=== PATIENT | female | born 1990 | race Caucasian/White ===

== ENCOUNTER 2018-12-30 20:45 | Emergency (ER) | payer OTHER ==
[2018-12-30 20:50] VITALS: PULSE 72; RESP 16
--- NOTE | 2018-12-30 21:54 | ED ---
Extremity Problem HPI - General Chief complaint: Extremity Problem,Nontraumatic Stated complaint: Knee pain Time Seen by Provider: 12/30/18 21:04 Source: patient Mode of arrival: ambulatory Limitations: no limitations - History of Present Illness Initial comments: This patient is a 28 year old woman who presents to be evaluated for right knee pain that has been going on intermittently for 2 weeks. The patient states she does quite a bit of going up and down stairs related to her work and believes that this may have flared it up. She indicates that she often wakes up in the morning with no pain but after work she has pain that will be about 9 out of 10 in severity. It is an aching pain. She notes that it is better with rest and worse when she is up on her feet. There is no radiation of the pain. She indicates that it is along the medial aspect of the right knee. The patient has not had any systemic symptoms including no fever or chills, rash, or other symptoms. She denies previous serious knee injury or surgery, though she does mention that she had somewhat similar pain is an 18-year-old but it resolved. MD Complaint: joint pain Onset/Timin -: week(s) Location: right, knee History of Same: Yes (As an 18-year-old) -: Yes arthralgia Radiation: none Severity scale (1-10): 9 Quality: aching Consistency: intermittent Improves with: rest Worsens with: weight bearing Associated Symptoms: denies other symptoms - Related Data Home Medications Medication Instructions Recorded Confirmed Dextroamphetamine/Amphetamine 30 mg PO DAILY 12/30/18 12/30/18 [Adderall] Levothyroxine Sodium [Synthroid] 125 mcg PO DAILY 12/30/18 12/30/18 Naproxen Sodium [Aleve] 220 mg PO QID PRN 12/30/18 12/30/18 Unknown Mood Stabilizer 1 tab PO DAILY 12/30/18 12/30/18 fluvoxaMINE MALEATE [Luvox CR] 150 mg PO DAILY 12/30/18 12/30/18 Previous Rx's Medication Instructions Recorded Ibuprofen 800 mg PO TID #20 tablet 12/30/18 Allergies Allergy/AdvReac Type Severity Reaction Status Date / Time amoxicillin AdvReac Severe Diarrhea Verified 12/30/18 21:04 Review of Systems ROS Statement: Those systems with pertinent positive or pertinent negative responses have been documented in the HPI. ROS Other: All systems not noted in ROS Statement are negative. Constitutional: Denies: fever, chills Respiratory: Denies: cough, dyspnea Cardiovascular: Denies: palpitations Gastrointestinal: Denies: diarrhea, constipation Genitourinary: Denies: dysuria, frequency Musculoskeletal: Reports: arthralgia. Denies: back pain, myalgia Skin: Denies: rash Neurological: Denies: headache, weakness, numbness, paresthesias Past Medical History Additional Past Medical History / Comment(s): hypothyroidism History of Any Multi-Drug Resistant Organisms: None Reported Past Surgical History: Cholecystectomy Additional Past Surgical History / Comment(s): Lap Band/ Smoking Status: Never smoker Past Alcohol Use History: None Reported Past Drug Use History: None Reported General Exam Limitations: no limitations General appearance: alert, in no apparent distress Extremities exam: Present: normal inspection, normal capillary refill. Absent: tenderness, pedal edema, joint swelling, calf tenderness Right Hip exam: Present: normal inspection, full ROM. Absent: tenderness Upper Leg exam: Present: normal inspection, full ROM. Absent: tenderness, swelling Knee exam: Present: normal inspection, pain/laxity with valgus (2 medial joint line), pain/laxity with varus (2 medial joint line), full knee extension. Absent: full ROM (Patient has active flexion to just over 90. I am able to fully range the joint.), swelling, abrasion, laceration, ecchymosis, deformity, crepitus, dislocation, erythema, effusion, pain w/ pronation/supination, posterior draw sign Lower Leg exam: Present: normal inspection, full ROM. Absent: tenderness Ankle exam: Present: normal inspection, full ROM. Absent: tenderness Foot/Toe exam: Present: normal inspection, full ROM. Absent: tenderness Neurovascular tendon exam: Present: no vascular compromise. Absent: pulse deficit, motor deficit, sensory deficit, tendon deficit Neurological exam: Present: alert. Absent: motor sensory deficit Skin exam: Present: warm, dry, intact, normal color. Absent: rash Course Vital Signs 12/30/18 20:47 Temperature 98.5 F Pulse Rate 72 Respiratory 16 Rate Blood Pressure 140/82 O2 Sat by Pulse 100 Oximetry Disposition Clinical Impression: Knee pain, right Disposition: HOME SELF-CARE Condition: Good Instructions (If sedation given, give patient instructions): Knee Pain (ED) Prescriptions: Ibuprofen 800 mg PO TID #20 tablet Is patient prescribed a controlled substance at d/c from ED?: No Referrals: Tiara Ly MD [Primary Care Provider] - 1-2 days
[2018-12-30 22:14] VITALS: BP 123/79; TEMP 98
== END 2018-12-30 22:41 | disposition home or self-care (01) ==
LOC: EC 20:45
DX: M25.561 Pain in right knee (principal); E03.9 Hypothyroidism, unspecified; Z90.49 Acquired absence of other specified parts of digestive tract; Z98.890 Other specified postprocedural states; Z79.890 Hormone replacement therapy; Z79.899 Other long term (current) drug therapy; Z88.0 Allergy status to penicillin
CPT/HCPCS: 99283

== ENCOUNTER 2019-07-12 21:14 | Emergency (ER) | payer OTHER ==
[2019-07-12] MEDS ORDERED: OSELTAMIVIR 75 MG CAP PO STA (22:29)
--- NOTE | 2019-07-12 22:55 | XR ---
EXAMINATION TYPE: XR chest 2V DATE OF EXAM: 07/12/2019 COMPARISON: 09/08/2013 HISTORY: Cough TECHNIQUE: 2 views FINDINGS: Heart is normal. There is some increased right paratracheal density. There are no hilar mas ses. Lungs are clear of infiltrate. There is no pleural effusion. There is density at the gastroesoph ageal junction that could relate to previous surgery. IMPRESSION: There is possible new mediastinal adenopathy compared to last exam. Follow-up recommended . No acute lung disease. Normal heart size.
[2019-07-12 23:08] VITALS: BP 110/67; PULSE 80; RESP 16; TEMP 98.3
--- NOTE | 2019-07-12 23:18 | ED ---
General Adult HPI - General Chief complaint: Headache Stated complaint: Fever Time Seen by Provider: 07/12/19 21:24 Source: patient, RN notes reviewed, old records reviewed Mode of arrival: ambulatory Limitations: no limitations - History of Present Illness Initial comments: 28-year-old female patient with seizure chief complaint of cough congestion waxing and waning fever and headache the last 2 days. Describes it as a pressure in her frontal lobe. Denies any chance of being . Denies any other complaints at this time. Systemic: Pt denies fatigue, fever/chills, rash. Pt denies weakness, night sweats, weight loss. Neuro: Pt denies visual disturbances, syncope or pre-syncope. HEENT: Pt denies ocular discharge or irritation, otalgia, rhinorrhea, pharyngitis or notable lymphadenopathy. Cardiopulmonary: Pt denies chest pain, SOB, heart palpitations, dyspnea on exertion. Abdominal/GI: Pt denies abdominal pain, n/v/d. : Pt denies dysuria, burning w/ urination, frequency/urgency. Denies new onset urinary or bowel incontinence. MSK: Pt denies myalgia, loss of strength or function in extremities. Neuro: Pt denies new onset weakness, paresthesias. - Related Data Home Medications Medication Instructions Recorded Confirmed Dextroamphetamine/Amphetamine 30 mg PO DAILY 12/30/18 12/30/18 [Adderall] Levothyroxine Sodium [Synthroid] 125 mcg PO DAILY 12/30/18 12/30/18 Naproxen Sodium [Aleve] 220 mg PO QID PRN 12/30/18 12/30/18 Unknown Mood Stabilizer 1 tab PO DAILY 12/30/18 12/30/18 fluvoxaMINE MALEATE [Luvox CR] 150 mg PO DAILY 12/30/18 12/30/18 Previous Rx's Medication Instructions Recorded Ibuprofen 800 mg PO TID #20 tablet 12/30/18 Allergies Allergy/AdvReac Type Severity Reaction Status Date / Time amoxicillin AdvReac Severe Diarrhea Verified 07/12/19 21:21 Review of Systems ROS Statement: Those systems with pertinent positive or pertinent negative responses have been documented in the HPI. ROS Other: All systems not noted in ROS Statement are negative. Past Medical History Past Medical History: Thyroid Disorder Additional Past Medical History / Comment(s): hypothyroidism, epilspsy History of Any Multi-Drug Resistant Organisms: None Reported Past Surgical History: Cholecystectomy Additional Past Surgical History / Comment(s): Lap Band/ Past Psychological History: ADD/ADHD, Anxiety, Depression, PTSD Smoking Status: Never smoker Past Alcohol Use History: None Reported Past Drug Use History: None Reported General Exam - General Exam Comments Initial Comments: Constitutional: NAD, AOX3, Pt has pleasant affect. HEENT: NC/AT, trachea midline, neck supple, no lymphadenopathy. Posterior ph arynx non erythematous, without exudates. External ears appear normal, without discharge. Mucous membranes moist. Eyes PERRLA, EOM intact. There is no scleral icterus. No pallor noted. Cardiopulmonary: RRR, no murmurs, rubs or gallops, no JVD noted. Lungs CTAB in anterior and posterior smith. No peripheral edema. Abdominal exam: Abdomen soft and non-distended. Abdomen non-tender to palpation in all 4 quadrants. Bowel sounds active in LLQ. No hepatosplenomegaly. No ecchymosis Neuro: CN II-XII intact. No nuchal rigidity. No raccon eyes, no simons sign, no hemotympanum. No cervical spinal tenderness. MSK: No posterior calf tenderness bilaterally, homans sign negative bilaterally. Posterior tibialis and radial pulse +2 bilaterally. Sensation intact in upper and lower extremities. Full active ROM in upper and lower extremities, 5/5 stregnth. Limitations: no limitations Course Vital Signs 07/12/19 07/12/19 21:18 23:07 Temperature 98.2 F 98.3 F Pulse Rate 93 80 Respiratory 20 16 Rate Blood Pressure 93/60 110/67 O2 Sat by Pulse 98 97 Oximetry Medical Decision Making - Medical Decision Making 28-year-old female patient presents to ED with complaint cough congestion fever fevered last 2 days. Patient vital signs are stable, afebrile. Physical exam displayed intact neurologic exam. Influenza A is positive. Chest x-ray displayed new mediastinal adenopathy. Patient declined any intracranial imagi ng. He has within therapeutic window initiated on Tamiflu. He'll be discharged with follow-up with primary care provider will use Tylenol at home, will have repeat chest imaging done by primary care provider to evaluate mediastinal adenopathy. Case discussed with Dr. Franklin. - Lab Data Lab Results 07/12/19 Range/Units 21:36 Influenza Type A RNA Detected H (Not Detectd) Influenza Type B (PCR) Not Detected (Not Detectd) Disposition Clinical Impression: Influenza A Disposition: HOME SELF-CARE Condition: Stable Instructions (If sedation given, give patient instructions): Influenza (ED) Additional Instructions: Follow up with PCP tomorrow. Use tylenol as needed for fever. Return to ED if condition worsens in anyway. Have repeat imaging of chest performed by PCP. Is patient prescribed a controlled substance at d/c from ED?: No Referrals: Tiara Ly MD [Primary Care Provider] - 1-2 days
== END 2019-07-12 23:21 | disposition home or self-care (01) ==
LOC: EC 21:14
DX: J10.1 Influenza due to other identified influenza virus with other respiratory manifestations (principal); R59.0 Localized enlarged lymph nodes; R56.9 Unspecified convulsions; F90.9 Attention-deficit hyperactivity disorder, unspecified type; F41.9 Anxiety disorder, unspecified; F32.9 Major depressive disorder, single episode, unspecified; E03.9 Hypothyroidism, unspecified; F43.10 Post-traumatic stress disorder, unspecified; Z79.890 Hormone replacement therapy; Z79.899 Other long term (current) drug therapy; Z88.0 Allergy status to penicillin
CPT/HCPCS: 71046; 87502; 99284

== ENCOUNTER → 2019-11-25 | Outpatient (CLI) | payer OTHER ==
--- NOTE | 2019-11-25 17:05 | P.HPBAR ---
Bariatric H&P - History & Physicial H&P Date: 11/25/19 History & Physicial: Visit/CC: Patient initial contact: Initial weight: Initial weight in pounds: Height: Initial BMI: Last weight: Current weight: Current weight in pounds: Current BMI: [place] body weight (based on NIH guidelines): Excess body weight loss: The patient is a 29 year-old F who presents for Bariatric Assessment. Has band at outside institution with and has complications from band with chronic pain and troubles swallowing. Wants bypass. Food is stuck. Recommend esophogram. Her gallbladder is gone. Lowest 248 pounds. Highest 330 pounds. She lost 290 to 248, 40 pound weight loss. Knee pain, right. Hip pain right. No ankle pain. Has feet pain. Has worst back pain. Has heartburn. She takes Prilosec for GERD. Recommend HAP assessment Past Medical History Past Medical History: Thyroid Disorder Additional Past Medical History / Comment(s): hypothyroidism, epilspsy History of Any Multi-Drug Resistant Organisms: None Reported Past Surgical History: Cholecystectomy Additional Past Surgical History / Comment(s): Lap Band/ Past Psychological History: ADD/ADHD, Anxiety, Depression, PTSD Smoking Status: Never smoker Past Alcohol Use History: None Reported Past Drug Use History: None Reported Bariatric Checklist Checklist: Plan: Checklist: EGD: 1. Hiatal hernia: 2. H. Pylori: HgbA1c: Vitamin D: Smoking: Never smoker Primary care physician referral: Psychiatry clearance: Cardiology clearance: Sleep study: Diet journal: VTE risk score: VTE risk level: Rehab needs at discharge:
[2019-11-25 17:22] VITALS: BP 128/72; PULSE 79; TEMP 98.2; BMI 46.3
== END | disposition home or self-care (01) ==
LOC: BARWHC3 15:25
PROVIDERS: ATTEND Surgery Plastic and Reconstructive Surgery
DX: T85.848A Pain due to other internal prosthetic devices, implants and grafts, initial encounter (principal); K21.9 Gastro-esophageal reflux disease without esophagitis
CPT/HCPCS: 99211

== ENCOUNTER 2020-09-01 18:06 | Inpatient (IN) | payer OTHER, MEDICAID ==
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
[2020-09-01 20:04] LABS: Amphetamine Screen,Urine Not Detected (NotDetected); Barbiturate Screen,Urine Not Detected (NotDetected); Benzodiazepines Screen,Urine Not Detected (NotDetected); Cocaine Screen,Urine Not Detected (NotDetected); Methadone Screen, Urine Not Detected (NotDetected); Opiate Screen,Urine Not Detected (NotDetected); Oxycodone Screen, Urine Not Detected (NotDetected); Phencyclidine Screen,Urine Not Detected (NotDetected); Tricyclic Antidepressant,Urine Not Detected (NotDetected); Urn Cannabinoid Scrn Not Detected (NotDetected)
[2020-09-02] MEDS ORDERED: LORazepam 1 MG TAB PO PRN (02:42)
[2020-09-02] MEDS ORDERED: LORazepam 2 MG/ML INJ IM PRN (02:44)
[2020-09-02] MEDS ORDERED: THYROID PORK 180 MG PO SCH (03:00)
[2020-09-02] MEDS ORDERED: ACETAMINOPHEN TAB 325 MG TAB PO PRN (03:00)
[2020-09-02] MEDS ORDERED: MAG HYDROX/AL HYDROX/SIMETH 30 ML CUP PO PRN (04:00)
[2020-09-02] MEDS ORDERED: haloperidoL 5 MG TAB PO PRN (05:00)
[2020-09-02] MEDS ORDERED: HALOPERIDOL LACTATE 5 MG/ML 1 ML VIAL IM PRN (06:00)
[2020-09-02] MEDS: ESCITALOPRAM 20 MG TAB PO SCH (08:27)
[2020-09-02] MEDS: DEXTROAMPHETAMINE PO SCH (08:29)
[2020-09-02] MEDS: AMPHETAMINE PO SCH (08:29)
[2020-09-02] MEDS ORDERED: MAGNESIUM HYDROXIDE 2,400 MG/10 ML CUP PO PRN (09:00)
[2020-09-02] MEDS ORDERED: NICOTINE 14MG/24HR PATCH TRANSDERM SCH (09:00)
[2020-09-02] MEDS ORDERED: TEMAZEPAM 15 MG CAP PO PRN (09:21)
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
[2020-09-02] MEDS: lamoTRIgine 25 MG TAB PO SCH ×4 (11:56→21:16)
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
[2020-09-02] MEDS: traZODone HCL 50 MG TAB PO SCH (20:58)
[2020-09-03] MEDS ORDERED: THYROID PORK 180 MG PO SCH (02:46)
[2020-09-03] MEDS: lamoTRIgine 25 MG TAB PO SCH ×2 (08:47→21:07)
[2020-09-03] MEDS: AMPHETAMINE PO SCH (08:47)
[2020-09-03] MEDS: ESCITALOPRAM 20 MG TAB PO SCH (08:47)
[2020-09-03] MEDS: DEXTROAMPHETAMINE PO SCH (08:47)
[2020-09-03] MEDS: THYROID PORK PO SCH (08:48)
[2020-09-03 12:06] LABS: ALT 16 U/L (4-34); AST 22 U/L (14-36); African American GFR (CKD) >90 (>60 ml/min/1.73 sqM); Albumin 4.2 g/dL (3.5-5.0); Alkaline Phosphatase 64 U/L (38-126); Anion Gap 12 mmol/L; Blood Urea Nitrogen 13 mg/dL (7-17); Calcium 9.7 mg/dL (8.4-10.2); Carbon Dioxide 23 mmol/L (22-30); Chloride 105 mmol/L (98-107); Cholesterol 194 mg/dL (<200); Glucose 108 mg/dL (74-99); HDL Cholesterol 37 mg/dL (40-60); LDL Cholesterol,Calculated 133 mg/dL (0-99); Non-African American GFR(CKD) >90 (>60 ml/min/1.73 sqM); Potassium 4.3 mmol/L (3.5-5.1); Sodium 140 mmol/L (137-145); Total Bilirubin 0.6 mg/dL (0.2-1.3); Total Protein 7.4 g/dL (6.3-8.2); Triglycerides 119 mg/dL (<150)
[2020-09-03 12:21] LABS: T4, Free (Free Thyroxine) 0.66 ng/dL (0.78-2.19)
[2020-09-03 12:24] LABS: Basophils % (A) 0 %; Eosinophils # (A) 0.2 k/uL (0-0.7); Eosinophils % (A) 2 %; HCT 39.2 % (34.0-46.0); HGB 12.7 gm/dL (11.4-16.0); Lymphocytes # (A) 1.4 k/uL (1.0-4.8); Lymphocytes % (A) 14 %; MCH 26.1 pg (25.0-35.0); MCHC 32.3 g/dL (31.0-37.0); MCV 80.8 fL (80.0-100.0); Mean Platelet Volume 9.9; Monocytes % (A) 10 %; Neutrophils # (A) 6.8 k/uL (1.3-7.7); Neutrophils % (A) 71 %; Platelet Count 239 k/uL (150-450); RBC 4.85 m/uL (3.80-5.40); RDW 15.4 % (11.5-15.5); WBC 9.5 k/uL (3.8-10.6)
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
[2020-09-03 19:21] LABS: Hemoglobin A1C 6.1 % (4.0-6.0)
[2020-09-03] MEDS: traZODone HCL 50 MG TAB PO SCH (21:07)
[2020-09-04] MEDS: lamoTRIgine 25 MG TAB PO SCH ×2 (07:43→21:06)
[2020-09-04] MEDS: ESCITALOPRAM 20 MG TAB PO SCH (07:43)
[2020-09-04] MEDS: THYROID PORK PO SCH (07:43)
[2020-09-04] MEDS: AMPHETAMINE PO SCH (07:53)
[2020-09-04] MEDS: DEXTROAMPHETAMINE PO SCH (07:53)
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
[2020-09-04] MEDS: traZODone HCL 50 MG TAB PO SCH (21:06)
[2020-09-05] MEDS: lamoTRIgine 25 MG TAB PO SCH (08:48)
[2020-09-05] MEDS: ESCITALOPRAM 20 MG TAB PO SCH (08:48)
[2020-09-05 08:56] VITALS: BP 120/71; PULSE 104; RESP 20; TEMP 96.1
[2020-09-05] MEDS ORDERED: THYROID PORK PO SCH (09:00)
[2020-09-05] MEDS: AMPHETAMINE PO SCH (09:28)
[2020-09-05] MEDS: DEXTROAMPHETAMINE PO SCH (09:28)
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
== END 2020-09-05 13:02 | disposition home or self-care (01) | DRG 885 ==
LOC: EC 18:06 → 3MHU 09-02 02:34
PROVIDERS: ADMIT Psychiatry & Neurology Psychiatry; ATTEND Psychiatry & Neurology Psychiatry
DX: F31.30 Bipolar disorder, current episode depressed, mild or moderate severity, unspecified (principal); R45.851 Suicidal ideations; E03.9 Hypothyroidism, unspecified; F43.10 Post-traumatic stress disorder, unspecified; G47.00 Insomnia, unspecified; Z79.899 Other long term (current) drug therapy; Z20.822 Contact with and (suspected) exposure to COVID-19
CPT/HCPCS: 80053; 80061; 80306; 81025; 83036; 84439; 84443; 85025; 87635; 99285

== ENCOUNTER → 2021-05-08 | Outpatient (CLI) | payer OTHER ==
[~2021-05-08] MED LIST: SODIUM CHLORIDE 0.9% 50 ML IVPB NR; SODIUM CHLORIDE 0.9% 500 ML 500 ML in EMPTY BAG 1 BAG IV PRN; SOTROVIMAB (EUA) 500 MG in SODIUM CHLORIDE 0.9% 100 ML IVPB NR
[2021-05-08 16:09] VITALS: RESP 16; TEMP 96.9
[2021-05-08 17:12] VITALS: BP 116/73; PULSE 76
== END ==
LOC: PROCWHC3 15:44
PROVIDERS: ATTEND Nurse Practitioner Family
DX: U07.1 COVID-19 (principal); E66.9 Obesity, unspecified; Z68.41 Body mass index [BMI] 40.0-44.9, adult; Z88.1 Allergy status to other antibiotic agents; Z88.8 Allergy status to other drugs, medicaments and biological substances
CPT/HCPCS: 96360; Q0247; M0247

== ENCOUNTER → 2022-05-15 | Outpatient (CLI) | payer OTHER ==
[2022-05-15 13:21] VITALS: BP 111/77; PULSE 79; RESP 16; TEMP 98; BMI 50.1
--- NOTE | 2022-05-15 13:55 | P.BASOAP ---
Subjective Progress Note Date: 05/15/22 Principal diagnosis: Morbid obesity 31-year-old female with history of previous lap band placement. Patient says she was not able to tolerate her lap band adjustments well. She had significant difficulty with accessing the port and on more than one occasion the band was too tight and she could not tolerate liquids. Patient is interested in band removal. She is interested in possible conversion later for bypass or sleeve. Doing well with the empty band. No GERD symptoms currently. No vomiting currently. She does have pain at the port site. Particularly when bending over. Objective - Vital Signs Vital signs: Vital Signs Temp 98 F 05/15/22 13:16 Pulse 79 05/15/22 13:16 Resp 16 05/15/22 13:16 BP 111/77 05/15/22 13:16 Pulse Ox FiO2 Intake & Output 05/14/22 05/15/22 05/15/22 18:59 06:59 18:59 Weight 149.685 kg - Exam Physical exam: General: Well-developed, well-nourished HEENT: Normocephalic, sclerae nonicteric Abdomen: Nontender, nondistended Extremities: No edema Neuro: Alert and oriented Assessment/Plan (1) Morbid obesity Narrative/Plan: 31-year-old female with morbid obesity and history of lap band placement. Patient with band intolerance not tolerating previous fills. She is interested in band removal. We discussed options of band removal, or band conversion. Personally favor gastric bypass as surgery of choice after converting from LAP- BAND given the increased risks of poor weight loss and intractable reflux with band sleeve conversion. She and I agreed to proceed with laparoscopic lap band removal at this time. She will investigate and pursue gastric bypass at a future date. Risks of bleeding, infection, perforation, nausea vomiting, dysphagia, abscess, reflux, conversion to an open procedure reviewed. She understands and wishes to proceed. Plan: Date: 05/15/22 Initial Weight: 134.717 kg Initial BMI: 45.1 Current Weight: 149.685 kg Current BMI: 50.1 Type of Surgery: Adjustable Gastric Banding Total Volume in Band: Previous Volume: Volume Removed: Volume Added: Band Size:
== END ==
LOC: BARWHC3 12:59
PROVIDERS: ATTEND Surgery
DX: E66.01 Morbid (severe) obesity due to excess calories (principal); Z68.43 Body mass index [BMI] 50.0-59.9, adult; Z88.6 Allergy status to analgesic agent; Z88.0 Allergy status to penicillin
CPT/HCPCS: 99211

== ENCOUNTER → 2022-06-20 | Outpatient (CLI) | payer OTHER ==
--- NOTE | 2022-06-20 13:50 | P.SLEEP ---
History of Present Illness DATE: 06/20/2022 CONSULTATION/NEW PATIENT EVALUATION HISTORY OF PRESENT ILLNESS/SLEEP-WAKE EVALUATION: 31-year-old lady had been evaluated in the sleep center for possible obstructive sleep apnea hypopnea syndrome. SLEEP SCHEDULE: Usually sleep schedule from 910 PM until 3 AM on weekdays and from 1011 PM until 4 AM on weekend. FALLING ASLEEP: Sometimes patient has problems with falling asleep, although no TV in bedroom. DURING SLEEP: Patient usually sleeps on the side and stomach position with episodes of loud snoring and witnessed episodes of stop breathing during the sleep. Positive history of sweating at night. Patient wakes up from sleep 3 times with nocturia. Significant amount of movements during the sleep No history of hypnogogical hallucinations, sleep paralysis, or cataplexy. DURING THE DAY/WAKE STATE: In the morning patient wake up tired, has difficulties to pay attention, falling asleep during the day, has problems with memory, concentration, irritability, depression. Trinity sleepiness scale is 12, which indicates sleepiness. Usually patient doesn't take naps, because she is always busy. PAST MEDICAL HISTORY: ADHD, depression. PAST SURGICAL HISTORY: LAP-BAND surgery, cholecystectomy. MEDICATIONS: Adderall 60 mg a day, Wellbutrin twice a day, Abilify. SOCIAL HISTORY: Negative for smoking, alcohol consumption extremely rarely. FAMILY HISTORY: Sleep apnea, hypertension, stroke, diabetes, cancer, restless legs. REVIEW OF SYSTEMS: Snoring, multiple awakenings from sleep, witnessed episodes of stop breathing during sleep. No fevers. No double vision. No recent chest pain. No shortness of breath. No abdominal pain. No bleeding episodes. No blood in urine. No seizure episodes. PHYSICAL EXAMINATION: GENERAL: A pleasant patient without any distress. VITAL SIGNS: BP 127/84 , HR 85 , RR 16 , weight 331.0 pounds, height 5 foot 7-3/4 inches, body mass index 50.7 . HEENT: PERRLA, EOMI. Evaluation of oropharynx showed tongue protrudes midline, low position of soft palate Mallampati 3. NECK: Supple. No JVD. Thyroid is not palpable. 17 inches in circumference. LUNGS: Clear to percussion and to auscultation. Good air exchange. No wheezing or rhonchi. HEART: S1, S2 regular. No murmurs, gallops or rubs. ABDOMEN: Soft and nontender. Bowel sounds are present. No organomegaly appreciated. Obese EXTREMITIES: No clubbing or cyanosis. CHIMNEY SWEEPER: Awake, alert, and oriented x3. Cranial nerves 2 to 7 intact. There is no fasciculation or atrophy noted. No focal deficits observed. ASSESSMENT: 1. Snoring, witnessed episodes of stop breathing during the sleep, small oropharyngeal airspace, multiple awakenings from sleep, likely neck, sleepiness Trinity Sleepiness Scale is 12. Obstructive sleep apnea hypopnea syndrome. 2. Obesity body mass index 50.7. 3. History of ADHD. 4. History of depression. 5 status post lap band surgery. 6 . Status post cholecystectomy. PLAN: 1. Polysomnography for evaluation of patient's breathing during sleep. 2. CPAP/BiPAP titration if sleep study confirms obstructive sleep apnea- hypopnea syndrome. 3. Preferable position during sleep on the side. 4. No driving if patient feels any sleepiness. Patient is aware of civil and criminal liability for unsafe driving. 5. Sleep hygiene with regular sleep time for at least 7.5-8 hours. 6. Aggressive losing weight weight. Thank you very much for referring this patient for consultation. Sincerely, Earl Meléndez MD, PhD, FAASM. Diplomat of [place] [employer], Sleep Medicine Board by [place] [employer] [place] [employer] [facility] Past Medical History Past Medical History: Thyroid Disorder Additional Past Medical History / Comment(s): hypothyroidism, epilspsy History of Any Multi-Drug Resistant Organisms: None Reported Past Surgical History: Cholecystectomy Additional Past Surgical History / Comment(s): Lap Band/ Past Anesthesia/Blood Transfusion Reactions: No Reported Reaction Smoking Status: Never smoker Medications and Allergies Home Medications Medication Instructions Recorded Confirmed Type Dextroamphetamine/Amphetamine 30 mg PO QAM 09/01/20 05/16/22 History [Adderall Xr] ARIPiprazole [Abilify] 10 mg PO DAILY 05/16/22 05/16/22 History Cholecalciferol (Vitamin D3) 5,000 unit PO DAILY 05/16/22 05/16/22 History [Vitamin D3 (125 MCG = 5,000 IU)] Cyanocobalamin (Vitamin B-12) 1,000 mcg PO DAILY 05/16/22 05/16/22 History [Vitamin B-12] Thyroid,Pork [[place] Thyroid] 330 mcg PO DAILY 05/16/22 05/16/22 History buPROPion HCL [Wellbutrin SR] 200 mg PO DAILY 05/16/22 05/16/22 History Allergies Allergy/AdvReac Type Severity Reaction Status Date / Time amoxicillin AdvReac Severe Diarrhea Verified 05/08/21 16:08 hydroxyzine [From Vistaril] AdvReac Makes Verified 05/08/21 16:08 heart race Sleep Note - Sleep Note Sleep Note: Temperature: Pulse Rate: Respiratory Rate: Blood Pressure: SpO2: Height: Weight: BMI: Neck Circumference:
== END ==
LOC: SLEEP 13:08
PROVIDERS: ATTEND Internal Medicine
DX: G47.33 Obstructive sleep apnea (adult) (pediatric) (principal); E66.9 Obesity, unspecified; Z68.43 Body mass index [BMI] 50.0-59.9, adult; F90.9 Attention-deficit hyperactivity disorder, unspecified type; F32.A Depression, unspecified; Z99.89 Dependence on other enabling machines and devices; Z98.84 Bariatric surgery status; Z90.49 Acquired absence of other specified parts of digestive tract; Z88.0 Allergy status to penicillin; Z88.6 Allergy status to analgesic agent
CPT/HCPCS: 99211

== ENCOUNTER → 2022-10-10 | Outpatient (CLI) | payer OTHER ==
[2022-10-10 16:48] VITALS: BP 125/79; PULSE 81; TEMP 98.2; BMI 52.6
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
== END ==
LOC: BARWHC3 16:33
PROVIDERS: ATTEND Surgery Plastic and Reconstructive Surgery
DX: E66.01 Morbid (severe) obesity due to excess calories (principal); E03.9 Hypothyroidism, unspecified; K21.9 Gastro-esophageal reflux disease without esophagitis; F90.9 Attention-deficit hyperactivity disorder, unspecified type; F31.9 Bipolar disorder, unspecified; F43.10 Post-traumatic stress disorder, unspecified; E06.3 Autoimmune thyroiditis; M16.0 Bilateral primary osteoarthritis of hip; M17.11 Unilateral primary osteoarthritis, right knee; M19.071 Primary osteoarthritis, right ankle and foot; M47.816 Spondylosis without myelopathy or radiculopathy, lumbar region; M19.072 Primary osteoarthritis, left ankle and foot; Z68.43 Body mass index [BMI] 50.0-59.9, adult; Z88.1 Allergy status to other antibiotic agents
CPT/HCPCS: 99211

== ENCOUNTER → 2022-10-27 | Outpatient (CLI) | payer OTHER ==
[2022-10-27 10:36] LABS: INR 0.9 (<1.2); Partial Thromboplastin Time 22.8 sec (22.0-30.0); Prothrombin Time 10.1 sec (9.0-12.0)
[2022-10-27 14:20] LABS: HCT 37.8 % (37.2-46.3); HGB 11.7 g/dL (12.0-15.0); MCH 26.2 pg (27.0-32.0); MCV 84.8 fL (80.0-97.0); Mean Platelet Volume 10.1 fL (9.5-12.2); NRBC Per 100 WBC 0 /100 WBCS (0.0-0.0); Platelet Count 266 X 10*3/uL (140-440); RBC 4.46 X 10*6/uL (4.10-5.20); RDW 14.8 % (11.5-14.5); WBC 5.41 X 10*3/uL (4.50-10.00)
[2022-10-27 14:43] LABS: % Iron Saturation 9.51 (12.00-45.00); ALT 22 U/L (8-44); AST 18 U/L (13-35); African American GFR (CKD) 98.1 (60.0-200.0); Albumin 4.2 g/dL (3.8-4.9); Alkaline Phosphatase 84 U/L (41-126); BUN/Creat Ratio 16.11 Ratio (12.00-20.00); Blood Urea Nitrogen 14.5 mg/dL (9.0-27.0); Calcium 9.7 mg/dL (8.7-10.3); Carbon Dioxide 22.8 mmol/L (20.0-27.5); Chloride 102 mmol/L (96-109); Ferritin 17.1 ng/mL (10.0-291.0); Globulin 2.8 g/dL (1.6-3.3); Glucose 106 mg/dL (70-110); Iron 48 ug/dL (50-170); Magnesium 1.8 mg/dL (1.5-2.4); Non-African American GFR(CKD) 84.6 (60.0-200.0); Phosphorus 3.7 mg/dL (2.4-5.1); Potassium 4.6 mmol/L (3.5-5.5); Sodium 140 mmol/L (135-145); Total Iron Binding Capacity 503 ug/dL (228-460)
[2022-10-27 14:45] LABS: Chol/HDL Ratio 5.42 Ratio; LDL Cholesterol,Calculated 127.7 mg/dL (0.0-131.0); Prealbumin 24.4 mg/dL (18.0-42.0)
== END | disposition home or self-care (01) ==
LOC: LABWHC1 09:05
PROVIDERS: ATTEND Surgery Plastic and Reconstructive Surgery
DX: E66.01 Morbid (severe) obesity due to excess calories (principal); D50.8 Other iron deficiency anemias; K91.2 Postsurgical malabsorption, not elsewhere classified; E44.0 Moderate protein-calorie malnutrition; E44.1 Mild protein-calorie malnutrition; E45 Retarded development following protein-calorie malnutrition; E55.9 Vitamin D deficiency, unspecified; K74.1 Hepatic sclerosis; N19 Unspecified kidney failure; T56.894A Toxic effect of other metals, undetermined, initial encounter; K50.90 Crohn's disease, unspecified, without complications
CPT/HCPCS: 36415; 80053; 80061; 82306; 82525; 82607; 82728; 82746; 83036; 83540; 83550; 83735; 83970; 84100; 84134; 84255; 84425; 84443; 84590; 84630; 85027; 85610; 85730

== ENCOUNTER → 2022-11-14 | Outpatient (CLI) | payer OTHER ==
--- NOTE | 2022-11-14 15:00 | FL ---
EXAMINATION TYPE: FL barium swallow DATE OF EXAM: 11/14/2022 COMPARISON: None HISTORY: Lap band reversal TECHNIQUE: Single contrast technique is utilized with thin and thick barium to evaluate the esophagus . FINDINGS: Proximal esophagus appears normal. At the thoracic inlet. No dilatation of the esophagus ev ident. However, there appears to be a transition within the mid esophagus below the aortic arch level . Borders appear smooth. Some narrowing without stenosis should be considered. Consider EGD for addit ional evaluation. Distal esophagus is mildly patulous. Schatzki's ring is identified above the level of the gastroesop hageal junction. Small hiatal hernia is present. Gastroesophageal junction opens to normal caliber. Note is made of scattered tertiary contractions during the examination compatible with presbyesophagu s. Secondary contractions observed during the examination. IMPRESSION: 1. There may be a caliber change between the midportion of the proximal esophagus and the distal eso phagus. Consider EGD for additional evaluation. 2. Small hiatal hernia
== END | disposition home or self-care (01) ==
LOC: RADUSWWP 09:50
PROVIDERS: ATTEND Surgery Plastic and Reconstructive Surgery
DX: K44.9 Diaphragmatic hernia without obstruction or gangrene (principal); R13.10 Dysphagia, unspecified
CPT/HCPCS: 74220

== ENCOUNTER 2022-11-26 06:26 | Day surgery (SDC) | payer OTHER ==
[~2022-11-26 06:26] MED LIST changes: +LACTATED RINGERS 1,000 ML IV SCH; -SODIUM CHLORIDE 0.9% 50 ML IVPB NR; -SODIUM CHLORIDE 0.9% 500 ML 500 ML in EMPTY BAG 1 BAG IV PRN; -SOTROVIMAB (EUA) 500 MG in SODIUM CHLORIDE 0.9% 100 ML IVPB NR
[2022-11-26 07:27] VITALS: TEMP 98
[2022-11-26] MEDS ORDERED: PROPOFOL 10 MG/ML 20 ML VIAL IV ONE (07:29)
[2022-11-26] MEDS ORDERED: LIDOCAINE 2% INJ 20 MG/ML (2 ML VIAL) ONE (07:29)
--- NOTE | 2022-11-26 07:30 | P.GSHP ---
History of Present Illness H&P Date: 11/26/22 CHIEF COMPLAINT: GERD HISTORY OF PRESENT ILLNESS: The patient is a 32-year-old female who presents reports gastroesophageal reflux disease. Upper endoscopy was offered for further evaluation and management. PAST MEDICAL HISTORY: Please see list. PAST SURGICAL HISTORY: Please see list. MEDICATIONS: Please see list. ALLERGIES: Please see list. SOCIAL HISTORY: No illicit drug use FAMILY HISTORY: No reports of Crohn disease or ulcerative colitis. REVIEW OF ORGAN SYSTEMS: CONSTITUTIONAL: No reports of fevers or chills. GI: Denies any blood in stools or constipation. PHYSICAL EXAM: VITAL SIGNS: Stable GENERAL: Well-developed and pleasant in no acute distress. HEENT: No scleral icterus. Extraocular movements grossly intact. Moist buccal mucosa. NECK: Supple without lymphadenopathy. CHEST: Unlabored respirations. Equal bilateral excursions. CARDIOVASCULAR: Regular rate and rhythm. Distal 2+ pulses. ABDOMEN: Soft, nondistended. MUSCULOSKELETAL: No clubbing, cyanosis, or edema. ASSESSMENT: 1. Gastroesophageal reflux disease PLAN: 1. Recommend proceeding with an upper endoscopy Past Medical History Past Medical History: Thyroid Disorder Additional Past Medical History / Comment(s): hypothyroidism, epilspsy History of Any Multi-Drug Resistant Organisms: None Reported Past Surgical History: Cholecystectomy Additional Past Surgical History / Comment(s): Lap Band/ d & c Past Anesthesia/Blood Transfusion Reactions: No Reported Reaction Smoking Status: Never smoker Medications and Allergies Home Medications Medication Instructions Recorded Confirmed Type ARIPiprazole [Abilify] 10 mg PO DAILY 05/16/22 11/26/22 History Thyroid,Pork [[place] Thyroid] 330 mcg PO DAILY 05/16/22 11/26/22 History buPROPion HCL [Wellbutrin SR] 300 mg PO BID 05/16/22 11/26/22 History Dextroamphetamine/Amphetamine 60 mg PO DAILY 07/11/22 11/26/22 History [Adderall] Allergies Allergy/AdvReac Type Severity Reaction Status Date / Time amoxicillin AdvReac Severe Diarrhea Verified 11/26/22 07:10 hydroxyzine [From Vistaril] AdvReac Makes Verified 11/26/22 07:10 heart race Surgical - Exam Vital Signs Temp Pulse Resp BP Pulse Ox 98.0 F 86 18 124/76 96 11/26/22 07:17 11/26/22 07:17 11/26/22 07:17 11/26/22 07:17 11/26/22 07:17
[2022-11-26 07:46] VITALS: RESP 16
--- NOTE | 2022-11-26 07:55 | P.PCN ---
Date of Procedure: 11/26/22 Description of Procedure: PREOPERATIVE DIAGNOSIS: Gastroesophageal reflux disease. Morbid obesity. POSTOPERATIVE DIAGNOSIS: Gastroesophageal reflux disease. Morbid obesity. Gastritis. Diaphragmatic hiatal hernia Gastroparesis OPERATION: Esophagogastroduodenoscopy with biopsies along antrum and duodenum SURGEON: Fe Escobedo MD ANESTHESIA: MAC. INDICATIONS: The patient is a 32-year-old female who presents with reflux disease. Benefits and risks of the procedure were described. Informed consent was obtained. DESCRIPTION: The patient was brought into the endoscopy suite and laid in the left lateral decubitus position. An Olympus gastroscope was passed along the posterior oropharynx down to the distal esophagus where the squamocolumnar junction was encountered at 40 cm from the incisors. The stomach was entered and no bile reflux was found. Additional findings are listed below. Biopsies with cold forceps were obtained of the antrum. The first through third portion of the duodenum was examined. Retroflexion of the scope confirmed Hill grade 3 lower esophageal valve. The squamocolumnar junction demonstrated LA grade B erosive esophagitis. The stomach was desufflated. The patient tolerated the procedure well. FINDINGS: Squamocolumnar junction 40 cm from the incisors. Diaphragmatic hiatus at 42 cm. Hiatal hernia, 2 cm Hill grade 3 lower esophageal valve. Retained food in the stomach or gastroparesis LA grade B erosive esophagitis. Biopsies obtained of the duodenum. Chronic gastritis with biopsies obtained. RECOMMENDATIONS: Upper endoscopy as needed. Plan - Discharge Summary Discharge Rx Participant: No New Discharge Prescriptions: No Action Thyroid,Pork [[place] Thyroid] 330 mcg PO DAILY buPROPion HCL [Wellbutrin SR] 300 mg PO BID ARIPiprazole [Abilify] 10 mg PO DAILY Dextroamphetamine/Amphetamine [Adderall] 60 mg PO DAILY Discharge Medication List ARIPiprazole [Abilify] 10 mg PO DAILY 05/16/22 [History] Thyroid,Pork [[place] Thyroid] 330 mcg PO DAILY 05/16/22 [History] buPROPion HCL [Wellbutrin SR] 300 mg PO BID 05/16/22 [History] Dextroamphetamine/Amphetamine [Adderall] 60 mg PO DAILY 07/11/22 [History]
[2022-11-26 08:00] VITALS: BP 127/91; PULSE 77
== END 2022-11-26 08:39 | disposition home or self-care (01) ==
LOC: ORWHC2ENDO 06:26
PROVIDERS: ATTEND Surgery Plastic and Reconstructive Surgery
DX: D72.820 Lymphocytosis (symptomatic) (principal); K21.00 Gastro-esophageal reflux disease with esophagitis, without bleeding; K29.50 Unspecified chronic gastritis without bleeding; K44.9 Diaphragmatic hernia without obstruction or gangrene; K31.84 Gastroparesis; E03.9 Hypothyroidism, unspecified; E66.01 Morbid (severe) obesity due to excess calories; Z68.44 Body mass index [BMI] 60.0-69.9, adult; Z90.49 Acquired absence of other specified parts of digestive tract; Z98.890 Other specified postprocedural states; Z79.890 Hormone replacement therapy; Z88.0 Allergy status to penicillin; Z79.899 Other long term (current) drug therapy
CPT/HCPCS: 81025; 88305; 88342; 88307; 43239; J2704; J2001

== ENCOUNTER 2022-12-28 15:32 | Emergency (ER) | payer OTHER ==
[2022-12-28 15:59] VITALS: TEMP 98
--- NOTE | 2022-12-28 16:36 | XR ---
EXAMINATION TYPE: XR foot complete RT DATE OF EXAM: 12/28/2022 COMPARISON: NONE HISTORY: 32-year-old female with pain after injury TECHNIQUE: 3 views FINDINGS: No acute fracture, subluxation, or dislocation is seen. Joint spaces are maintained. IMPRESSION: No acute osseous abnormality seen.
--- NOTE | 2022-12-28 17:47 | ED ---
General Adult HPI - General Chief complaint: Extremity Injury, Lower Stated complaint: R foot injury Source: patient Mode of arrival: ambulatory Limitations: no limitations - History of Present Illness Initial comments: 32-year-old female presenting to the ED with a chief complaint of foot pain. Patient states that she stepped out of her car onto a flat concrete surface. Patient states when she states that her right foot down she heard a "crunch". Since then notes pain to the foot. Has been able to ambulate however notes some difficulty secondary to the pain. Has been using Motrin, Tylenol, resting icing and elevating with improvement of pain. No other complaints. - Related Data Home Medications Medication Instructions Recorded Confirmed ARIPiprazole [Abilify] 10 mg PO DAILY 05/16/22 12/19/22 Thyroid,Pork [[place] Thyroid] 330 mcg PO DAILY 05/16/22 12/19/22 buPROPion HCL [Wellbutrin SR] 300 mg PO BID 05/16/22 12/19/22 Dextroamphetamine/Amphetamine 60 mg PO DAILY 07/11/22 12/19/22 [Adderall] Previous Rx's Medication Instructions Recorded Omeprazole [PriLOSEC] 40 mg PO DAILY #14 cap 11/26/22 Allergies Allergy/AdvReac Type Severity Reaction Status Date / Time amoxicillin AdvReac Severe Diarrhea Verified 12/28/22 15:59 hydroxyzine [From Vistaril] AdvReac Makes Verified 12/28/22 15:59 heart race Review of Systems ROS Statement: Those systems with pertinent positive or pertinent negative responses have been documented in the HPI. ROS Other: All systems not noted in ROS Statement are negative. Past Medical History Past Medical History: Thyroid Disorder Additional Past Medical History / Comment(s): hypothyroidism, epilspsy History of Any Multi-Drug Resistant Organisms: None Reported Past Surgical History: Bariatric Surgery, Cholecystectomy Additional Past Surgical History / Comment(s): Lap Band/ lap band removed 2022 Past Anesthesia/Blood Transfusion Reactions: No Reported Reaction Past Psychological History: ADD/ADHD, Anxiety, Depression, PTSD Smoking Status: Never smoker Past Alcohol Use History: None Reported Past Drug Use History: None Reported General Exam Limitations: no limitations General appearance: alert, in no apparent distress Respiratory exam: Present: normal lung sounds bilaterally Cardiovascular Exam: Present: regular rate, normal rhythm GI/Abdominal exam: Present: soft Extremities exam: Present: other (Strength and sensation intact of the right foot. Able to ambulate without significant difficulty. Tenderness to palpation at the base of the first metatarsal.) Neurological exam: Present: alert, oriented X3 Psychiatric exam: Present: normal affect, normal mood Skin exam: Present: warm, dry Course Vital Signs 12/28/22 15:57 Temperature 98 F Pulse Rate 74 Respiratory 18 Rate Blood Pressure 148/85 O2 Sat by Pulse 99 Oximetry Medical Decision Making - Medical Decision Making Was pt. sent in by a medical professional or institution (, BILL, UPPER MARKER, urgent care, hospital, or prison...) When possible be specific @ -No Did you speak to anyone other than the patient for history (EMS, parent, family, police, friend...)? What history was obtained from this source @ -No Did you review nursing and triage notes (agree or disagree)? Why? @ -I reviewed and agree with nursing and triage notes Were old charts reviewed (outside hosp., previous admission, EMS record, old EKG, old radiological studies, urgent care reports/EKG's, prison records)? Report findings @ -None Differential Diagnosis (chest pain, altered mental status, abdominal pain women, abdominal pain men, vaginal bleeding, weakness, fever, dyspnea, syncope, headach e, dizziness, GI bleed, back pain, seizure, CVA, palpatations, mental health, musculoskeletal)? @ -Acute fracture, acute sprain, Lisfranc. This is not meant to be an all-inclusive list. EKG interpreted by me (3pts min.). @ -None X-rays interpreted by me (1pt min.). @ -X-ray shows no evidence of fracture or other acute process. CT interpreted by me (1pt min.). @ -None done U/S interpreted by me (1pt. min.). @ -None done What testing was considered but not performed or refused? (CT, X-rays, U/S, labs)? Why? @ -None What meds were considered but not given or refused? Why? @ -None Did you discuss the management of the patient with other professionals (professionals i.e. BILL Hurt, UPPER MARKER, lab, RT, psych nurse, social media content manager, grocery specialist, teacher, technology officer, case packer and sealer)? Give summary @ -No Was smoking cessation discussed for >3mins.? @ -No Was critical care preformed (if so, how long)? @ -No Were there social determinants of health that impacted care today? How? (Homelessness, low income, unemployed, alcoholism, drug addiction, transportation, low edu. Level, literacy, decrease access to med. care, penitentiary, rehab)? @ -No Was there de-escalation of care discussed even if they declined (Discuss DNR or withdrawal of care, Hospice)? DNR status @ -No What co-morbidities impacted this encounter? (DM, HTN, Smoking, COPD, CAD, Cancer, CVA, ARF, Chemo, Hep., AIDS, mental health diagnosis, sleep apnea, morbid obesity)? @ -Obesity Was patient admitted / discharged? Hospital course, mention meds given and route, prescriptions, significant lab abnormalities, going to OR and other pertinent info. @ -Discharged. Since onset of initial injury, patient reports improvement of pain. Advised to continue RICE. Urgent studies here showed no evidence of fracture. Patient will be provided follow-up with orthopedics. Discharged home in stable condition. Undiagnosed new problem with uncertain prognosis? @ -No Drug Therapy requiring intensive monitoring for toxicity (Heparin, Nitro, Insulin, Cardizem)? @ -No Were any procedures done? @ -No Diagnosis/symptom? @ -Foot sprain Acute, or Chronic, or Acute on Chronic? @ -Acute Uncomplicated (without systemic symptoms) or Complicated (systemic symptoms)? @ -Uncomplicated Side effects of treatment? @ -No Exacerbation, Progression, or Severe Exacerbation? @ -No Poses a threat to life or bodily function? How? (Chest pain, USA, CT, pneumonia, PE, COPD, DKA, ARF, appy, cholecystitis, CVA, Diverticulitis, Homicidal, Suicidal, threat to staff... and all critical care pts) @ -No Disposition Clinical Impression: Foot sprain Disposition: HOME SELF-CARE Condition: Good Instructions (If sedation given, give patient instructions): Foot Sprain (ED) Additional Instructions: Please return to the Emergency Department if symptoms worsen or any other concerns. Is patient prescribed a controlled substance at d/c from ED?: No Referrals: Yuli Alexander MD [Primary Care Provider] - 1-2 days Master Amanda DO [Doctor of Osteopathic Medicine] - 1-2 days Time of Disposition: 17:45
[2022-12-28 18:19] VITALS: BP 121/78; PULSE 95; RESP 16
== END 2022-12-28 18:19 | disposition home or self-care (01) ==
LOC: EC 15:32
DX: S93.601A Unspecified sprain of right foot, initial encounter (principal); E03.9 Hypothyroidism, unspecified; F41.9 Anxiety disorder, unspecified; F32.A Depression, unspecified; E66.9 Obesity, unspecified; Z79.890 Hormone replacement therapy; Z79.899 Other long term (current) drug therapy; Z88.0 Allergy status to penicillin; Z88.6 Allergy status to analgesic agent; Z90.49 Acquired absence of other specified parts of digestive tract; Z68.43 Body mass index [BMI] 50.0-59.9, adult; X50.1XXA Overexertion from prolonged static or awkward postures, initial encounter
CPT/HCPCS: 99283

== ENCOUNTER → 2023-01-21 | Outpatient (CLI) | payer OTHER ==
[2023-01-21 10:42] VITALS: BMI 53.4
== END ==
LOC: BARWHC3 08:11
PROVIDERS: ATTEND Surgery Plastic and Reconstructive Surgery
DX: E66.01 Morbid (severe) obesity due to excess calories (principal); Z71.3 Dietary counseling and surveillance; Z68.43 Body mass index [BMI] 50.0-59.9, adult; Z88.0 Allergy status to penicillin; Z88.6 Allergy status to analgesic agent
CPT/HCPCS: 97804

== ENCOUNTER → 2023-03-29 | Outpatient (CLI) | payer OTHER ==
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
== END | disposition home or self-care (01) ==
LOC: RADXRWHC 08:23
PROVIDERS: ATTEND Family Medicine
DX: J68.3 Other acute and subacute respiratory conditions due to chemicals, gases, fumes and vapors (principal)
CPT/HCPCS: 71046

== ENCOUNTER 2023-05-09 21:23 | Emergency (ER) | payer OTHER ==
[2023-05-09 21:40] VITALS: RESP 18
[2023-05-09] MEDS ORDERED: IPRATROPIUM-ALBUTEROL 3 ML NEB INHALATION STA (22:11)
[2023-05-09] MEDS ORDERED: KETOROLAC 15 MG/ML 1 ML VIAL IM STA (22:12)
[2023-05-09] MEDS ORDERED: dexAMETHasone 2 MG TAB PO STA (22:12)
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
[2023-05-10 00:27] VITALS: BP 106/70; PULSE 94; TEMP 97.9
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
== END 2023-05-10 00:13 | disposition home or self-care (01) ==
LOC: EC 21:23
DX: S20.219A Contusion of unspecified front wall of thorax, initial encounter (principal); J98.01 Acute bronchospasm; E03.9 Hypothyroidism, unspecified; Z79.890 Hormone replacement therapy; Z88.0 Allergy status to penicillin; Z88.8 Allergy status to other drugs, medicaments and biological substances; Z86.59 Personal history of other mental and behavioral disorders; Z90.49 Acquired absence of other specified parts of digestive tract; V89.2XXA Person injured in unspecified motor-vehicle accident, traffic, initial encounter; Y92.410 Unspecified street and highway as the place of occurrence of the external cause
CPT/HCPCS: 94640; 73562; 71046; 99284; 96372; J8540; J1885

== ENCOUNTER → 2023-05-15 | Outpatient (CLI) | payer OTHER ==
[2023-05-15 10:47] LABS: African American GFR (CKD) >90 (>60 ml/min/1.73 sqM); Blood Urea Nitrogen 15 mg/dL (7-17); Non-African American GFR(CKD) 83 (>60 ml/min/1.73 sqM)
--- NOTE | 2023-05-15 11:28 | CT ---
EXAMINATION TYPE: CT chest w con DATE OF EXAM: 05/15/2023 COMPARISON: None HISTORY: chest mass f/u, pt has no complaints CT DLP: 954.3 mGycm Automated exposure control for dose reduction was used. CONTRAST: CT scan of the chest is performed with IV Contrast, patient injected with 100 mL of Isovue 300. FINDINGS: LUNGS: The lungs are grossly clear, there is no concerning parenchymal mass or nodule identified. T here is no pleural effusion or pneumothorax seen. The tracheobronchial tree is patent. MEDIASTINUM: Superior mediastinal cystic mass measuring 6.0 x 6.7 x 7.7 cm. There is displacement of adjacent vasculature and the esophagus as well as mass effect upon the trachea. Tracheal narrowing no jason to approximately 6 mm. This mass is of uncertain etiology may arise from the lower pole of the th yroid gland. Mediastinal mass or other etiology is not excluded. UPPER ABDOMEN: The gallbladder is surgically absent. OTHER: No additional significant abnormality is seen. IMPRESSION: 1.Superior mediastinal cystic mass measuring 6.0 x 6.7 x 7.7 cm. There is displacement of adjacent va sculature and the esophagus as well as mass effect upon the trachea. Tracheal narrowing noted to appr oximately 6 mm. This mass is of uncertain etiology may arise from the lower pole of the thyroid gland . Mediastinal mass or other etiology is not excluded.
== END | disposition home or self-care (01) ==
LOC: RADCTMAIN 09:37
PROVIDERS: ATTEND Family Medicine
DX: R91.8 Other nonspecific abnormal finding of lung field (principal); K22.89 Other specified disease of esophagus
CPT/HCPCS: 82565; 84520; 71260; 36415; Q9967

== ENCOUNTER → 2023-06-05 | Outpatient (CLI) | payer OTHER ==
[2023-06-05 11:14] LABS: INR 0.9 (<1.2); Partial Thromboplastin Time 22.8 sec (22.0-30.0); Prothrombin Time 10.1 sec (10.0-12.5)
[2023-06-05 15:14] LABS: Basophils # (A) 0.06 X 10*3/uL (0.00-0.10); Basophils % (A) 0.8 %; Eosinophils # (A) 0.27 X 10*3/uL (0.04-0.35); Eosinophils % (A) 3.8 %; HCT 40.8 % (37.2-46.3); HGB 12.4 g/dL (12.0-15.0); Lymphocytes # (A) 1.47 X 10*3/uL (0.90-5.00); Lymphocytes % (A) 20.8 %; MCH 25.9 pg (27.0-32.0); MCHC 30.4 g/dL (32.0-37.0); MCV 85.2 FL (80.0-97.0); Mean Platelet Volume 9.8 FL (9.5-12.2); Monocytes # (A) 0.37 X 10*3/uL (0.20-1.00); Monocytes % (A) 5.2 %; NRBC Per 100 WBC 0 X 10*3/uL (0.00-0.01); Neutrophils # (A) 4.88 X 10*3/uL (1.80-7.70); Platelet Count 288 X 10*3/uL (140-440); RBC 4.79 X 10*6/uL (4.10-5.20); RDW 16.7 % (11.5-14.5); WBC 7.08 X 10*3/uL (4.50-10.00)
[2023-06-05 15:18] LABS: Blood Urea Nitrogen 9.4 mg/dL (9.0-27.0); Carbon Dioxide 24.7 mmol/L (21.6-31.8); Chloride 103 mmol/L (96-109); Glucose 135 mg/dL (70-110); Potassium 4.5 mmol/L (3.5-5.5); Sodium 140 mmol/L (135-145)
[2023-06-06 04:43] LABS: Appearance,Urine Turbid (Clear); Bilirubin,Urine Negative (Negative); Blood,Urine Negative (Negative); Color,Urine Yellow (Yellow); Ketones,Urine Negative (Negative); Nitrite,Urine Negative (Negative); Specific Gravity,Urine 1.024 (1.001-1.030)
[2023-06-06 04:54] LABS: Bacteria,Urine 1+ (None Seen)
== END | disposition home or self-care (01) ==
LOC: LABPAT 10:12
PROVIDERS: ATTEND Thoracic Surgery (Cardiothoracic Vascular Surgery)
DX: Z01.812 Encounter for preprocedural laboratory examination (principal); E87.8 Other disorders of electrolyte and fluid balance, not elsewhere classified; R58 Hemorrhage, not elsewhere classified; R22.9 Localized swelling, mass and lump, unspecified
CPT/HCPCS: 36415; 80051; 81001; 82565; 82947; 84520; 85025; 85610; 85730; 86850; 86900; 86901; 87086

== ENCOUNTER 2023-06-13 05:49 | Inpatient (IN) | payer OTHER ==
[~2023-06-13 05:49] MED LIST changes: -LACTATED RINGERS 1,000 ML IV SCH; +ceFAZolin 3 GM in SODIUM CHLORIDE 0.9% 100 ML IVPB PRN
[2023-06-13] MEDS ORDERED: LACTATED RINGERS 1,000 ML IV SCH (06:23)
[2023-06-13] MEDS ORDERED: ONDANSETRON 4 MG/2 ML VIAL IVP ONE ×2 (06:23→06:58)
[2023-06-13] MEDS ORDERED: DEXAMETHASONE SOD PHOSPHATE 4 MG/ML 1 ML VIAL IV ONE (06:23)
[2023-06-13] MEDS ORDERED: LIDOCAINE 1% (10MG/ML) FOR IV START INTRADERMA PRN (06:23)
[2023-06-13 06:54] LABS: Glucose,Whole Blood 113 mg/dL (70-110)
[2023-06-13] MEDS ORDERED: LACTATED RINGERS 1,000 ML IV ONE ×5 (06:59→09:21)
[2023-06-13] MEDS ORDERED: HYDROmorphone 0.5 MG/0.5 ML SYRINGE IVP PRN (07:00)
[2023-06-13] MEDS ORDERED: MIDAZOLAM 2 MG/2 ML VIAL IV PRN (07:00)
[2023-06-13] MEDS ORDERED: MIDAZOLAM 2 MG/2 ML VIAL IVP ONE (07:10)
[2023-06-13] MEDS ORDERED: fentaNYL (PF) 50 MCG/ML 2 ML AMP IVP ONE ×2 (07:10→07:22)
[2023-06-13] MEDS ORDERED: HYDROmorphone (PF) 1 MG/ML ONE (07:39)
[2023-06-13] MEDS ORDERED: NEOSTIGMINE 1 MG/ML 10 ML VIAL ONE (07:39)
[2023-06-13] MEDS ORDERED: PROPOFOL 10 MG/ML 20 ML VIAL IV ONE (07:39)
[2023-06-13] MEDS ORDERED: ROCURONIUM 10 MG/ML (5 ML VIAL) IV ONE (07:39)
[2023-06-13] MEDS ORDERED: DEXAMETHASONE SOD PHOSPHATE 4 MG/ML 1 ML VIAL ONE (07:39)
[2023-06-13] MEDS ORDERED: LIDOCAINE 1% INJ 10MG/ML (20 ML MDV) ONE (07:39)
[2023-06-13] MEDS ORDERED: MIDAZOLAM 2 MG/2 ML VIAL ONE (07:39)
[2023-06-13] MEDS ORDERED: ROPIVACAINE 5 MG/ML 30 ML VIAL ONE (07:39)
[2023-06-13] MEDS ORDERED: SUCCINYLCHOLINE CHLORIDE 200 MG/10 ML VIAL IV ONE (07:39)
[2023-06-13] MEDS ORDERED: GLYCOPYRROLATE 0.2 MG/ML 2 ML VIAL ONE (07:39)
[2023-06-13] MEDS ORDERED: fentaNYL (PF) 50 MCG/ML 2 ML AMP ONE (07:39)
[2023-06-13] MEDS ORDERED: BUPIVACAINE (PF) 0.5% 30 ML VIAL SQ ONE (09:40)
--- NOTE | 2023-06-13 10:04 | P.ANPRN ---
Procedure Note - Anesthesia - Nerve Block Performed Right Erector Spinae Single Time Out Performed: Yes Date of Procedure: 06/13/23 Procedure Start Time: 07:10 Procedure Stop Time: :19 Location of Patient: PreOp Indication: Acute Post-Operative Pain, Requested by Surgeon Sedation Type: Sedate with meaningful contact maintained Preparation: Sterile Prep Position: Sitting Needle Types: Pajunk Needle Gauge: 21 Ultrasound used to visualize needle placement: Yes Ultrasound used to observe medication spread: Yes Injectate: 0.5% Ropivacaine (see comment for volume) (30 ml + 4 mg dexamethasone) Blood Aspirated: No Pain Paresthesia on Injection Noted: No Resistance on Injection: Normal Image Stored and Saved: Yes Events: Uneventful and Well Tolerated
--- NOTE | 2023-06-13 10:05 | P.ANPRN ---
Procedure Note - Anesthesia - Invasive Line Left Arterial Line Time Out Performed: Yes Date of Procedure: 06/13/23 Time of Procedure: 07:22 Location of Patient: PreOp Preparation: Sterile Prep, Sterile Dressing Arterial Line Location: Radial Ultrasound Used: Yes Purpose - Visualization and Identification of Vasculature: Yes Needle Guage: 20 G Image Stored and Saved: Yes Narrative: Central line placement per sterile protocol utilized.
--- NOTE | 2023-06-13 11:58 | XR ---
EXAMINATION TYPE: XR chest 1V portable DATE OF EXAM: 06/13/2023 Comparison: 05/09/2023 Clinical History: 32-year-old female post mediastinal cyst removal Findings: Subcutaneous emphysema along the right chest wall. A right basilar chest tube is present with a small right-sided pneumothorax measuring approximately 1.9 cm at the apex 4 mm laterally. Patchy opacity i s present throughout the right greater than left lungs especially at the lung bases. Very low lung vo lumes. Heart size is accentuated. Impression: 1. Postoperative changes with right basilar chest tube and a small right-sided pneumothorax measuring 1.9 cm at the apex and 4 mm laterally. 2. Marked hypoventilatory changes limiting the exam. Patchy opacities right greater than left lungs p robably represents areas of atelectasis. Attention on follow-up.
--- NOTE | 2023-06-13 12:07 | P.OP ---
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 She presents with complaints of worsening dyspnea and difficulty breathing as well as upper chest pain. Computed tomography scan demonstrates a very large cyst in the superior mediastinum's placing the great vessels compressing the trachea displacing the esophagus. Operative Findings: Very large cyst in the superior mediastinum densely adherent to the surrounding tissues with moderate inflammatory vascular adhesions. The interior of the cyst was filled with thick greenish fluid greater than 100 mL in total volume. Description of Procedure: Patient was brought to the operating room placed supine on the operating table multiple attempts to place an arterial line were unsuccessful at obtaining a functioning arterial line. Patient was anesthetized and intubated with a double-lumen endotracheal tube which was positioned with fiberoptic bronchoscopy and secured. Patient was turned in the left lateral decubitus position and appropriately positioned. Right chest was sterilely prepped and draped. 8 mm robotic port was placed in the seventh interspace in the anterior axillary line. Once confirming placement in the pleural space CO2 insufflation was begun. 3 further 8 mm ports were placed one anterior and 2 ports posterior to this under video thoracoscopic guidance. 15 mm working port was placed at the level of the diaphragm anteriorly. The robot was docked. The chest was explored. The upper lobe was retracted inferiorly exposing the superior mediastinum. Mass effect from the cyst was evident. This was covered with pleura and fat. We dissected through to the cyst wall. We freed the cyst wall circumferentially and dissected back along the cyst wall superiorly inferiorly anteriorly and posteriorly to the greatest extent possible. At this point we opened the cyst and suctioned free of its contents. The cyst was opened widely and then the right half of the cyst was excised using the vessel sealer. Remaining shallow cavity was irrigated copiously and then a 19 Darwin tube was placed anteriorly and positioned posteriorly. The lung was reinflated and the robot undocked. The incisions were closed with layers of Vicryl suture. Skin glue and Band-Aids were applied. The patient was turned supine and extubated and transferred to recovery in stable condition.
[2023-06-13] MEDS ORDERED: ACETAMINOPHEN IV (For NPO) 1,000 MG/100 ML VIAL IVPB ONE (12:48)
[2023-06-13] MEDS ORDERED: IPRATROPIUM-ALBUTEROL 3 ML NEB IH PRN (16:08)
[2023-06-13] MEDS ORDERED: ONDANSETRON 4 MG/2 ML VIAL IVP PRN (16:08)
[2023-06-13] MEDS ORDERED: DEXTROSE 5%-0.45% NACL 1,000 ML IV SCH (16:08)
[2023-06-13] MEDS ORDERED: ACETAMINOPHEN TAB 325 MG TAB PO PRN (16:08)
[2023-06-13] MEDS: KETOROLAC 15 MG/ML 1 ML VIAL IVP SCH (16:25)
[2023-06-13] MEDS: ceFAZolin 3 GM in SODIUM CHLORIDE 0.9% 100 ML IVPB SCH (16:44)
[2023-06-13] MEDS: IPRATROPIUM-ALBUTEROL 3 ML NEB IH SCH ×2 (18:08→21:35)
[2023-06-13] MEDS: traMADol 50 MG TAB PO PRN (20:15)
[2023-06-13 20:22] VITALS: RESP 16
[2023-06-14] MEDS: KETOROLAC 15 MG/ML 1 ML VIAL IVP SCH ×3 (00:55→18:55)
[2023-06-14] MEDS: ceFAZolin 3 GM in SODIUM CHLORIDE 0.9% 100 ML IVPB SCH (00:57)
[2023-06-14 01:20] VITALS: BP 127/66; TEMP 98.2
[2023-06-14 05:51] LABS: Basophils % (A) 0 %; Eosinophils % (A) 0 %; HCT 39.8 % (34.0-46.0); HGB 12.1 gm/dL (11.4-16.0); Hypochromasia Marked; Lymphocytes # (A) 1.2 k/uL (1.0-4.8); Lymphocytes % (A) 10 %; MCH 26.7 pg (25.0-35.0); MCHC 30.3 g/dL (31.0-37.0); MCV 87.9 fL (80.0-100.0); Mean Platelet Volume 7.8; Monocytes # (A) 0.7 k/uL (0-1.0); Monocytes % (A) 6 %; Neutrophils # (A) 9.4 k/uL (1.3-7.7); Neutrophils % (A) 82 %; Platelet Count 258 k/uL (150-450); RBC 4.53 m/uL (3.80-5.40); RDW 15.6 % (11.5-15.5); WBC 11.4 k/uL (3.8-10.6)
[2023-06-14 06:05] LABS: African American GFR (CKD) 87 (>60 ml/min/1.73 sqM); Anion Gap 15 mmol/L; Blood Urea Nitrogen 12 mg/dL (7-17); Calcium 8.3 mg/dL (8.4-10.2); Carbon Dioxide 22 mmol/L (22-30); Chloride 102 mmol/L (98-107); Glucose 107 mg/dL (74-99); Non-African American GFR(CKD) 75 (>60 ml/min/1.73 sqM); Potassium 4.1 mmol/L (3.5-5.1); Sodium 139 mmol/L (137-145)
[2023-06-14] MEDS: PATIENT'S OWN (Dextroamphetamine/Amphetamine [Adderall] 30 MG Tablet) PO SCH ×2 (06:16→16:40)
[2023-06-14] MEDS ORDERED: PANTOPRAZOLE 40 MG TABLET PO SCH (07:30)
[2023-06-14] MEDS ORDERED: LEVOTHYROXINE 75 MCG TAB PO SCH (07:30)
[2023-06-14] MEDS ORDERED: LEVOTHYROXINE 200 MCG PO SCH (07:30)
[2023-06-14] MEDS: IPRATROPIUM-ALBUTEROL 3 ML NEB IH SCH ×4 (08:58→21:09)
[2023-06-14] MEDS ORDERED: ARIPiprazole 10 MG TAB PO SCH (09:00)
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
--- NOTE | 2023-06-14 12:29 | XR ---
EXAMINATION TYPE: XR chest 1V DATE OF EXAM: 06/14/2023 COMPARISON: 06/13/2023 HISTORY: 32 year-old female post mediastinal cyst removal TECHNIQUE: Single frontal view of the chest is obtained. FINDINGS: Right-sided chest tube remains in place. Suspected residual trace 5 mm right apical pneumo thorax. Prominent patchy right lower lung opacity persists. Asymmetric elevation right hemidiaphragm also persists and suggests volume loss on the right, increased in the interval. Left lung and pleural space appear clear. Heart upper limits of normal in size. IMPRESSION: 1. Prominent hypoventilatory changes. Aeration worsening at the right base. Patient may benefit from incentive spirometry. 2. Right basilar chest tube. Trace 5 mm right apical pneumothorax remains versus 1.9 cm, previously.
--- NOTE | 2023-06-14 14:50 | XR ---
EXAMINATION TYPE: XR chest 2V DATE OF EXAM: 06/14/2023 COMPARISON: Earlier today HISTORY: 32 year-old female post chest tube removal TECHNIQUE: PA and lateral views FINDINGS: Heart upper limits of normal in size. Interval removal of the right basilar chest tube. Prominent pat mansoor and focal right basilar opacities remain. No appreciable pneumothorax. A linear density at the in tersection of the clavicle and third posterior rib likely summation artifact. Suspected trace right p leural effusion with meniscus tracking up to the apex. IMPRESSION: Interval removal of right basilar chest tube. There appears to be a small effusion. Ongoing focal rig ht lower lung opacity. No sizable pneumothorax seen.
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
[2023-06-14 16:39] VITALS: PULSE 91
[2023-06-14] MEDS: traMADol 50 MG TAB PO PRN (16:52)
== END 2023-06-14 22:58 | disposition home or self-care (01) | DRG 121 ==
LOC: 2ORMAIN 05:49 → 3SCARD 13:36
PROVIDERS: ADMIT Thoracic Surgery (Cardiothoracic Vascular Surgery); ATTEND Thoracic Surgery (Cardiothoracic Vascular Surgery)
PROC: 4A133B1 Monitoring of Arterial Pressure, Peripheral, Percutaneous Approach (ICD-10-PCS; 2023-06-13)
PROC: 03HY32Z Insertion of Monitoring Device into Upper Artery, Percutaneous Approach (ICD-10-PCS; 2023-06-13)
PROC: 4A133J1 Monitoring of Arterial Pulse, Peripheral, Percutaneous Approach (ICD-10-PCS; 2023-06-13)
PROC: 02HV33Z Insertion of Infusion Device into Superior Vena Cava, Percutaneous Approach (ICD-10-PCS; 2023-06-13)
PROC: 0WBC4ZZ Excision of Mediastinum, Percutaneous Endoscopic Approach (ICD-10-PCS; principal; 2023-06-13 07:30)
PROC: 8E0W8CZ Robotic Assisted Procedure of Trunk Region, Via Natural or Artificial Opening Endoscopic (ICD-10-PCS; principal; 2023-06-13 07:30)
PROC: 0W9 Anatomical Regions, General, Drainage (ICD-10-PCS; principal; 2023-06-13 07:30)
DX: Q34.1 Congenital cyst of mediastinum (principal); E66.01 Morbid (severe) obesity due to excess calories; Z68.43 Body mass index [BMI] 50.0-59.9, adult; E06.3 Autoimmune thyroiditis; F43.10 Post-traumatic stress disorder, unspecified; I87.1 Compression of vein; J39.8 Other specified diseases of upper respiratory tract; J98.11 Atelectasis; Z98.84 Bariatric surgery status; Z91.51 Personal history of suicidal behavior; K90.0 Celiac disease; Z88.0 Allergy status to penicillin; Z88.7 Allergy status to serum and vaccine; F41.9 Anxiety disorder, unspecified; R09.02 Hypoxemia; G40.919 Epilepsy, unspecified, intractable, without status epilepticus
CPT/HCPCS: 64999; 71045; 71046; 80048; 85025; 88305; 94640; 94760

== ENCOUNTER → 2023-07-04 | Outpatient (CLI) | payer OTHER ==
--- NOTE | 2023-07-04 12:20 | XR ---
EXAMINATION TYPE: XR chest 2V DATE OF EXAM: 07/04/2023 11:30 AM CLINICAL INDICATION:Female, 32 years old with history of R06.02 SHORTNESS OF BREATH; [facility] COMPARISON: Chest radiographs from 06/14/2023. TECHNIQUE: XR chest 2V Frontal and lateral views of the chest. FINDINGS: Lungs/Pleura: Right midlung streaky atelectasis. Improved aeration compared to 06/14/2023. There is no evidence of pleural effusion, focal consolidation, or pneumothorax. Pulmonary vascularity: Unremarkable. Heart/mediastinum: Cardiomediastinal silhouette is unremarkable. Musculoskeletal: No acute osseous pathology. IMPRESSION: Improved aeration with right midlung streaky atelectasis. No acute cardiopulmonary disease/process.
== END | disposition home or self-care (01) ==
LOC: RADXRMAIN 11:19
DX: R06.02 Shortness of breath (principal)
CPT/HCPCS: 71046

== ENCOUNTER → 2023-09-23 | Outpatient (CLI) | payer OTHER ==
[2023-09-23 09:22] LABS: African American GFR (CKD) >90 (>60 ml/min/1.73 sqM); Blood Urea Nitrogen 12 mg/dL (7-17); Non-African American GFR(CKD) >90 (>60 ml/min/1.73 sqM)
--- NOTE | 2023-09-25 15:44 | CT ---
EXAMINATION TYPE: CT chest w con CT DLP: 821 mGycm, Automated exposure control for dose reduction was used. DATE OF EXAM: 09/23/2023 9:59 AM COMPARISON: Chest CT from 05/15/2023 CLINICAL INDICATION:Female, 33 years old with history of R05.3 chronic cough; PHH, MARY, SOB hx of berto st tube placed in June 2023 TECHNIQUE: Multiple axial images were obtained through the chest. Sagittal and coronal reformats were created for review. Contrast used:100 mL of Isovue 300 with IV Contrast (None if empty) Oral contrast used: (None if empty) FINDINGS: LUNGS/ PLEURA: The left lung is clear. Patchy bands of atelectasis are seen throughout the right lung . With history of chest tube question whether these might represent patches of pulmonary parenchymal hemorrhage which is usually short duration resolving on its own quickly. There are also some areas of consolidating process in the right lung. AIRWAY: Patent and unremarkable. HEART: Size within normal limits. MEDIASTINUM: The previously seen superior mediastinal mass is reduced in size. Question this represen ts hematoma or thymic cyst versus other etiology. VASCULATURE: No aortic aneurysm. MUSCULOSKELETAL: No acute osseous abnormalities SOFT TISSUES/LYMPH NODES: Unremarkable. LOWER NECK: No significant findings. UPPER ABDOMEN: No significant findings. IMPRESSION: Patchy areas of atelectasis with some consolidation and other patches suggest acute pneumonia versus pulmonary parenchymal hemorrhage versus other. Reduction in size of superior mediastinal mass prior study of 05/15/2023 Follow up recommendations for incidental pulmonary nodules, if there are any, are per [employer] or [employer]. https://radiopaedia.org/articles/[email or web address]-[email or web address]?lang=us
== END | disposition home or self-care (01) ==
LOC: RADCTMAIN 08:36
PROVIDERS: ATTEND Family Medicine
DX: J98.11 Atelectasis (principal)
CPT/HCPCS: 82565; 84520; 71260; 36415; Q9967

== ENCOUNTER 2023-11-06 01:59 | Inpatient (IN) | payer OTHER ==
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
[2023-11-06 03:17] LABS: ALT 26 U/L (4-34); AST 37 U/L (14-36); African American GFR (CKD) >90 (>60 ml/min/1.73 sqM); Albumin 4.4 g/dL (3.5-5.0); Alkaline Phosphatase 83 U/L (38-126); Anion Gap 6 mmol/L; Blood Urea Nitrogen 16 mg/dL (7-17); Calcium 8.8 mg/dL (8.4-10.2); Carbon Dioxide 22 mmol/L (22-30); Chloride 108 mmol/L (98-107); Glucose 135 mg/dL (74-99); Non-African American GFR(CKD) >90 (>60 ml/min/1.73 sqM); Sodium 136 mmol/L (137-145); Total Bilirubin 1.1 mg/dL (0.2-1.3); Total Protein 7.8 g/dL (6.3-8.2)
[2023-11-06 03:50] LABS: Potassium 5.2 mmol/L (3.5-5.1)
[2023-11-06] MEDS: SODIUM CHLORIDE 0.9% 1,000 ML IV SCH (03:59)
[2023-11-06 04:04] LABS: Anisocytosis Slight; Basophils # (A) 0.1 k/uL (0-0.2); Basophils % (A) 1 %; Eosinophils # (A) 0.3 k/uL (0-0.7); Eosinophils % (A) 4 %; HCT 43.2 % (34.0-46.0); HGB 13.5 gm/dL (11.4-16.0); Lymphocytes # (A) 1.4 k/uL (1.0-4.8); Lymphocytes % (A) 20 %; MCH 25.3 pg (25.0-35.0); MCHC 31.3 g/dL (31.0-37.0); Mean Platelet Volume 7.7; Monocytes # (A) 0.5 k/uL (0-1.0); Monocytes % (A) 8 %; Neutrophils # (A) 4.3 k/uL (1.3-7.7); Neutrophils % (A) 64 %; Platelet Count 301 k/uL (150-450); RBC 5.34 m/uL (3.80-5.40); RDW 16.3 % (11.5-15.5); WBC 6.7 k/uL (3.8-10.6)
--- NOTE | 2023-11-06 04:13 | XR ---
EXAM: XR Chest, 2 Views CLINICAL HISTORY: ITS.REASON XR Reason: dyspnea TECHNIQUE: Frontal and lateral views of the chest. COMPARISON: 2 views of the chest July 04, 2013 IMPRESSION: 1. Right hemidiaphragm elevation with adjacent linear airspace disease which likely relates to atelectatic changes. If there is further concern, consider cross-sectional imaging.
[2023-11-06 04:30] LABS: Prothrombin Time 10.7 sec (10.0-12.5)
[2023-11-06] MEDS: IPRATROPIUM-ALBUTEROL 3 ML NEB INHALATION STA (04:43)
[2023-11-06 05:18] LABS: Partial Thromboplastin Time 21.2 sec (22.0-30.0)
--- NOTE | 2023-11-06 06:06 | CT ---
EXAMINATION TYPE: CT chest angio for PE DATE OF EXAM: 11/06/2023 COMPARISON: NONE HISTORY: Hypoxia, tachycardia, and shortness of breath CT DLP: 1408 mGycm. Automated Exposure Control for Dose Reduction was Utilized. CONTRAST: CTA scan of the thorax is performed with IV Contrast, patient injected with 80 mL of Isovue 300, pulm onary embolism protocol. MIP Images are created on CT scanner and reviewed. FINDINGS: LUNGS: Elevated right hemidiaphragm with right basilar consolidation and/or atelectasis and additiona l right midlung linear scarring and/or atelectasis. Slightly suboptimal due to respiratory motion com promise particularly for subcentimeter nodules. No pleural effusion or pneumothorax seen bilaterally. MEDIASTINUM: Suboptimal bolus with most dense contrast in aorta and SVC. No central saddle pulmonary embolism. Prominent right hilar lymph nodes. Enlarged anterior superior mediastinal mass or lymph no de measuring 4.5 x 3.2 cm axial image 36. Prominent main pulmonary artery. No cardiomegaly or pericar dial effusion is seen. OTHER: Cholecystectomy clips are seen. Liver is diffusely low dense consistent with fatty infiltrativ e hepatocellular disease. IMPRESSION: 1. Suboptimal study without central pulmonary embolism. Cannot exclude peripheral acute pulmonary emb ed on this exam. 2. Elevated right hemidiaphragm with right basilar consolidation and/or atelectasis and right midlung linear scarring and/or atelectasis. Left lung is clear. 3. Prominent right hilar lymph nodes. Enlarged superior mediastinal lymph node. Neoplasm cannot be ex cluded. Follow-up is advised.
[2023-11-06] MEDS ORDERED: NALOXONE 0.4 MG/ML 1 ML VIAL IVP PRN (06:51)
[2023-11-06] MEDS: IPRATROPIUM-ALBUTEROL 3 ML NEB INHALATION PRN (08:40)
[2023-11-06] MEDS ORDERED: predniSONE 20 MG TAB PO SCH (09:00)
[2023-11-06] MEDS: BUDESONIDE 0.5 MG/2 ML NEBU INHALATION SCH (09:16)
[2023-11-06] MEDS: LEVOTHYROXINE 75 MCG TAB PO SCH (09:18)
[2023-11-06] MEDS: ARIPiprazole 10 MG TAB PO SCH (09:19)
[2023-11-06] MEDS: methylPREDNISolone SOD SUCCI 125 MG/2 ML VIAL IV STA (09:20)
[2023-11-06] MEDS: methylPREDNISolone SOD SUCCI 125 MG/2 ML VIAL IV SCH (11:12)
[2023-11-06] MEDS: IPRATROPIUM-ALBUTEROL 3 ML NEB INHALATION SCH (11:40)
--- NOTE | 2023-11-06 14:12 | P.CNPUL ---
History of Present Illness Consult date: 11/06/23 Requesting physician: Matthew Oreilly Reason for consult: dyspnea, asthma Chief complaint: Shortness of breath, cough History of present illness: This is a very pleasant 33-year-old obese female patient who works as a respiratory therapist with a known history of mild intermittent chronic bronchial asthma, hypothyroidism, depression, morbid obesity with previous lap band surgery, previous COVID infection. 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 Since that time she states she has had ongoing issues with shortness of breath. She had been treated with steroids in the outpatient setting without much improvement. She also is on air supra and DuoNeb ventilations without much improvement. She was scheduled to be seen in our office as a new patient in December however she presented here to the emergency room with worsening shortness of breath, cough and congestion. Chest x-ray reveals a right hemidiaphragm elevation with adjacent linear airspace disease likely representing atelectasis. CT angiogram was suboptimal to rule out peripheral pulmonary emboli. No evidence of central pulmonary embolism. There is noted elevated right hemidiaphragm with right basilar consolidation and/or atelectasis and right midlung linear scarring and/or atelectasis. Left lung is clear. There is noted prominent right hilar lymph nodes. Enlarged superior mediastinal lymph node. White count 6.7. Hem oglobin 13.5. Platelets 301. Sodium 136. Potassium 5.2. Bicarb 22. BUN 16. Creatinine 0.85. Glucose 135. Viral screen is negative. She is seen today in consultation in the emergency department. She is currently sitting up on stretcher. She is dyspneic with conversation. Dyspneic with minimal exertion. No productive sputum. No hemoptysis. Review of Systems REVIEW OF SYSTEMS: CONSTITUTIONAL: Denies any recent significant weight loss or weight gain. EYES: Denies change in vision. EARS, NOSE, MOUTH, THROAT: Denies headaches, denies sore throat. CARDIOVASCULAR: Denies chest pain, palpitations or syncopal episodes. RESPIRATORY: Positive for shortness of breath, cough, congestion no hemoptysis. GASTROINTESTINAL: Denies change in appetite, denies abdominal pain GENITOURINARY: Denies hematuria, denies infections. MUSKULOSKELETAL: Denies pain, denies swelling. INTEGUMENTARY: Denies rash, denies eczema. NEUROLOGICAL: Denies recent memory loss, no recent seizure activity. PSYCHIATRIC: Denies anxiety, denies depression. HEMATOLOGIC/LYMPHATIC: Denies anemia, denies enlarged lymph nodes. Past Medical History Past Medical History: Asthma, Thyroid Disorder Additional Past Medical History / Comment(s): hypothyroidism, epilspsy, collaspse lung right side History of Any Multi-Drug Resistant Organisms: None Reported Past Surgical History: Bariatric Surgery, Cholecystectomy Additional Past Surgical History / Comment(s): Lap Band/ lap band removed 2022, tumor removal from medialstinal region. chest tube Past Anesthesia/Blood Transfusion Reactions: No Reported Reaction Past Psychological History: ADD/ADHD, Anxiety, Depression, PTSD Smoking Status: Never smoker Past Alcohol Use History: None Reported Past Drug Use History: None Reported - Past Family History Mother Family Medical History: Diabetes Mellitus, Hypertension, Myocardial Infarction ([place]) Father Family Medical History: Hypertension Brother(s) Family Medical History: Hypertension Medications and Allergies Home Medications Medication Instructions Recorded Confirmed Type ARIPiprazole [Abilify] 10 mg PO DAILY 05/16/22 11/06/23 History Levothyroxine Sodium [Unithroid] 200 mcg PO DAILY 06/11/23 11/06/23 History Albuterol Nebulized [Ventolin 2.5 mg INHALATION RT-Q4H 11/06/23 11/06/23 History Nebulized] Budesonide [Pulmicort] 1 mg INHALATION RT-BID 11/06/23 11/06/23 History Levothyroxine Sodium [Unithroid] 50 mcg PO DAILY 11/06/23 11/06/23 History Allergies Allergy/AdvReac Type Severity Reaction Status Date / Time amoxicillin AdvReac Severe Diarrhea Verified 11/06/23 10:09 hydroxyzine [From Vistaril] AdvReac Makes Verified 11/06/23 10:09 heart race Physical Exam Vitals: Vital Signs Temp Pulse Resp BP Pulse Ox 11/06/23 13:02 103 H 20 116/92 92 L 11/06/23 12:02 92 L 11/06/23 12:00 89 L 11/06/23 11:53 100 11/06/23 11:41 98 11/06/23 10:34 98 24 93 L 11/06/23 08:54 108 H 11/06/23 08:40 102 H 11/06/23 08:10 87 24 123/68 95 11/06/23 05:14 117 H 32 H 156/96 93 L 11/06/23 04:56 115 H 11/06/23 04:45 112 H 11/06/23 04:04 107 H 26 H 139/100 95 11/06/23 02:32 125 H 26 H 94 L 11/06/23 02:16 28 H 11/06/23 02:08 98.5 F 106 H 28 H 149/89 94 L Intake and Output 11/05/23 11/06/23 11/06/23 22:59 06:59 14:59 Other: Weight 167.829 kg GENERAL EXAM: Alert, very pleasant, morbidly obese, 33-year-old female, in mild respiratory distress. HEAD: Normocephalic. EYES: Normal reaction of pupils, equal size. NOSE: Clear with pink turbinates. THROAT: No erythema or exudates. NECK: No masses, no JVD. CHEST: No chest wall deformity. LUNGS: Equal air entry with bilateral wheeze, diminished in the right lung base. CVS: S1 and S2 normal with no audible murmur, regular rhythm. ABDOMEN: No hepatosplenomegaly, normal bowel sounds, no guarding or rigidity. SPINE: No scoliosis or deformity SKIN: No rashes CENTRAL NERVOUS SYSTEM: No focal deficits, tone is normal in all 4 extremities. EXTREMITIES: There is no peripheral edema. No clubbing, no cyanosis. Peripheral pulses are intact. Results - Laboratory Findings CBC and BMP: 11/06/23 03:11 11/06/23 02:50 PT/INR, D-dimer PT 10.7 sec (10.0-12.5) 11/06/23 03:11 INR 1.0 (<1.2) 11/06/23 03:11 Abnormal lab findings: Abnormal Labs 11/06/23 11/06/23 11/06/23 02:50 03:11 03:11 RDW 16.3 H APTT 21.2 L Sodium 136 L Potassium 5.2 H Chloride 108 H Glucose 135 H AST 37 H - Diagnostic Findings Chest x-ray: image reviewed CT scan - chest: image reviewed Assessment and Plan Assessment: Acute hypoxemic respiratory failure secondary to an acute exacerbation of mild intermittent chronic bronchial asthma, elevated right hemidiaphragm and volume loss History of mild intermittent chronic bronchial asthma History of mediastinal cyst 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, 2023 Elevated right hemidiaphragm suspect secondary to above, previous x-rays did not reveal abnormalities Morbid obesity, BMI 56.3 kg/m History of lap band surgery with subsequent removal in July 2022 History of depression Hypothyroidism Lifelong non-smoker Plan: The patient was seen and evaluated Chest x-ray, CT angiogram, labs and medications reviewed Obtain a sniff test Initiate DuoNeb inhalations, Pulmicort and Perforomist inhalations Solu-Medrol 60 mg every 6 hours Titrate the FiO2 as tolerated We will continue to follow and make further recommendations based on her clinical status I have personally seen and examined the patient, performed the documentation and the assessment and plan as written. Number of minutes spent on the visit: 20.
--- NOTE | 2023-11-06 15:39 | FL ---
EXAMINATION TYPE: FL sniff test without CXR DATE OF EXAM: 11/06/2023 Comparison: Radiograph Clinical History: 33-year-old female history of mediastinal mass removed 06/13/2023 complicated by rig ht-sided pneumothorax and chest tube. Ongoing shortness of breath. Right diaphragm elevation TECHNIQUE: Real-time fluoroscopy was performed during quiet breathing, deep inspiration expiration, a nd sniffing maneuver. Total fluoroscopy time: 28 seconds Total images: 9 Total dose: 284.07 mGycm2. Findings: There is marked asymmetric elevation right hemidiaphragm. Absent movement of the right hemidiaphragm during both quiet breathing and deep inspiration. There is bea paradoxical, upward movement of the right hemidiaphragm during sniffing maneuver. Impression: Exam positive. There is bea paralysis of the right hemidiaphragm.
[2023-11-06] MEDS: FORMOTEROL FUMARATE 20 MCG/2 ML NEBU INHALATION SCH (20:16)
[2023-11-06] MEDS: BUDESONIDE 1 MG/2 ML NEBU INHALATION SCH (20:16)
--- NOTE | 2023-11-06 22:05 | P.HPIM ---
History of Present Illness H&P Date: 11/06/23 HISTORY OF PRESENT ILLNESS: 33-year-old office patient with active medical history of chronic asthma with multiple recurrent episode, history of morbid obesity, depression, previous history of lap band and previous history of gallbladder surgery who had COVID-19 earlier in the year and she feels has not recovered well since developed to have worsening wheezes cough and symptoms and has been on and off medication management for it since. Also she found in June that she had mass in the mediastinum area and without having surgery with Dr. 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 She developed to have worsening shortness of breath since but since her procedure developed to have what seemed like elevated right- sided diaphragm and continue to have reactive lymph node in the mediastinum area. She apparently developed to have much worsening shortness of breath wheezes and worsening asthma with slight respiratory failure and has been on prednisone 40 mg for the last 10 days straight which patient did not have much relief with her symptoms she works as a respiratory therapist and through the worsening symptoms she had ended up coming to the emergency department at [facility] after midnight today 11/06/2023 where was seen and evaluated was giving few rounds of breathing treatment along with oxygen did not loosen up her lungs continue to be much worse. D-dimer was elevated chest x-ray showed right hemidiaphragmatic elevation with airspace disease present at the base. CT angiogram was suboptimal failed to show any evidence for pulmonary embolism but noted again in the right hemidiaphragm elevation with basilar consolidation and atelectasis along with midlung glinides scarring and or atelectasis with prominent right hilar lymph node enlargement with enlarged superior mediastinal lymph node as well. She was started on steroid IV along with titration of O2 and updraft treatment admitted to the hospital will be seen pulmonary and see if patient will need to go for bronchoscopy or not. REVIEW OF SYSTEMS: CONSTITUTIONAL: Morbidly obese in mild respiratory distress. EYES: No icterus sclerae, no conjunctivitis. EARS, NOSE, MOUTH, THROAT, and FACE: No sore throat, lymphadenopathy, carotid bruits or deformity. RESPIRATORY: Positive shortness of breath cough wheezes with productive phlegm and stridor. CARDIOVASCULAR: Positive tachycardia with no angina but significant shortness of breath with it as well. GASTROINTESTINAL: No Abd pain, Nausea or vomiting, no Diarrhea or constipation, No GI Bleed, no distention or masses. GENITOURINARY: Negative for Hematuria or UTI, no kidney stones. INTEGUMENT/BREAST: Negative for any muscular injury with mild osteoarthritis.. HEMATOLOGIC/LYMPHATIC: Negative for bleed or purpura. MUSCULOSKELTAL: Negative for Myalgia or arthralgia. NEURLOGICAL: No LOC, Sz or syncope, blurred vision dizziness or abnormality.. BEHAVIORAL/PSYCH: Negative. ENDOCRINE: Negative. PHYSICAL EXAMINATION: General Appearance: Alert cooperative with mild distress. Neck HEENT: Supple, no lymphadenopathy, no thyroid enlargement, no carotid bruits. Lungs: Decreased breath sound bilaterally with fine rhonchi positive crackles and expiratory wheezes in both lung smith worse on the right side of the left side. Chest Wall: Decreased expansion with deep inspiration no tenderness and no deformity was found on exam, no costochondral pain or discomfort. Heart: Regular rate and rhythm, S1, S2 normal positive tachycardia, no murmur, rub or gallop. Back: Symmetric, no curvature, ROM normal, no CVA tenderness. Abdomen: Soft, non-tender, bowel sounds active all four quadrants, no masses, no organomegaly. Extremities: Extremities normal, atraumatic, no cyanosis or edema. Pulses: 2+ and symmetric. Skin: Skin color, texture, tugor normal, no rashes or lesions. Neurologic: Alert oriented x3 cranial nerves II through XII intact, no motor deficit, no abnormal balance or gait. ASSESSMENT AND PLAN: _Severe acute asthma exacerbation: Patient was hospitalized will continue Solu- Medrol along with updraft treatment and steroid inhaler. _Acute hypoxic respiratory failure secondary to exacerbation of intermittent asthma with elevation of the diaphragmatic and more loss of volume possibility of underlying bronchitis or infection as well. _History of mediastinal cyst postresection with quite scarring tissue in the lung. Continue to watch for any further complication patient be seen pulmonary on regular basis. 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 Will continue to watch it again not a clear if there is any management can be done for at this point. _Possibility of severe bronchitis and we described to show this is quite possi ble she might benefit from simple course of doxycycline 100 mg twice a day at this point. _Severe depression with recurrent episode, remain on Abilify at this point. _Hypothyroidism: Remain on levothyroxine 50 mcg daily. _Morbid obesity: Post lap band in the past failure to management continue diet control. _GI prophylaxis: She will be on Pepcid 20 mg daily. _DVT prophylaxis: Patient will be on Lovenox 40 mg subcutaneous daily. CODE STATUS: Full code. Admit patient to the inpatient service for more than 2 night stay. _ Past Medical History Past Medical History: Asthma, Thyroid Disorder Additional Past Medical History / Comment(s): hypothyroidism, epilspsy, collaspse lung right side History of Any Multi-Drug Resistant Organisms: None Reported Past Surgical History: Bariatric Surgery, Cholecystectomy Additional Past Surgical History / Comment(s): Lap Band/ lap band removed 2022, tumor removal from medialstinal region. chest tube Past Anesthesia/Blood Transfusion Reactions: No Reported Reaction Past Psychological History: ADD/ADHD, Anxiety, Depression, PTSD Smoking Status: Never smoker Past Alcohol Use History: None Reported Past Drug Use History: None Reported - Past Family History Mother Family Medical History: Diabetes Mellitus, Hypertension, Myocardial Infarction ([place]) Father Family Medical History: Hypertension Brother(s) Family Medical History: Hypertension Medications and Allergies Home Medications Medication Instructions Recorded Confirmed Type ARIPiprazole [Abilify] 10 mg PO DAILY 05/16/22 11/06/23 History Levothyroxine Sodium [Unithroid] 200 mcg PO DAILY 06/11/23 11/06/23 History Albuterol Nebulized [Ventolin 2.5 mg INHALATION RT-Q4H 11/06/23 11/06/23 History Nebulized] Budesonide [Pulmicort] 1 mg INHALATION RT-BID 11/06/23 11/06/23 History Levothyroxine Sodium [Unithroid] 50 mcg PO DAILY 11/06/23 11/06/23 History Allergies Allergy/AdvReac Type Severity Reaction Status Date / Time amoxicillin AdvReac Severe Diarrhea Verified 11/06/23 10:09 hydroxyzine [From Vistaril] AdvReac Makes Verified 11/06/23 10:09 heart race Physical Exam Vitals: Vital Signs Temp Pulse Resp BP Pulse Ox 11/06/23 08:10 87 24 123/68 95 11/06/23 05:14 117 H 32 H 156/96 93 L 11/06/23 04:56 115 H 11/06/23 04:45 112 H 11/06/23 04:04 107 H 26 H 139/100 95 11/06/23 02:32 125 H 26 H 94 L 11/06/23 02:16 28 H 11/06/23 02:08 98.5 F 106 H 28 H 149/89 94 L Intake and Output 11/05/23 11/06/23 11/06/23 22:59 06:59 14:59 Other: Weight 167.829 kg Results CBC & Chem 7: 11/06/23 03:11 11/06/23 02:50 Labs: Abnormal Lab Results - Last 24 Hours (Table) 11/06/23 11/06/23 11/06/23 Range/Units 02:50 03:11 03:11 RDW 16.3 H (11.5-15.5) % APTT 21.2 L (22.0-30.0) sec Sodium 136 L (137-145) mmol/L Potassium 5.2 H (3.5-5.1) mmol/L Chloride 108 H (98-107) mmol/L Glucose 135 H (74-99) mg/dL AST 37 H (14-36) U/L
[2023-11-07] MEDS: LEVOTHYROXINE 50 MCG TAB PO SCH (05:41)
[2023-11-07 08:43] LABS: Anisocytosis Slight; Basophils % (A) 0 %; Eosinophils % (A) 0 %; HCT 39.7 % (34.0-46.0); HGB 12.6 gm/dL (11.4-16.0); Hypochromasia Moderate; Lymphocytes # (A) 0.8 k/uL (1.0-4.8); Lymphocytes % (A) 9 %; MCHC 31.9 g/dL (31.0-37.0); MCV 81.7 fL (80.0-100.0); Monocytes # (A) 0.6 k/uL (0-1.0); Monocytes % (A) 7 %; Neutrophils # (A) 7.1 k/uL (1.3-7.7); Neutrophils % (A) 83 %; Platelet Count 312 k/uL (150-450); RBC 4.86 m/uL (3.80-5.40); WBC 8.6 k/uL (3.8-10.6)
[2023-11-07 08:55] LABS: ALT 24 U/L (4-34); AST 20 U/L (14-36); African American GFR (CKD) >90 (>60 ml/min/1.73 sqM); Albumin 4.1 g/dL (3.5-5.0); Alkaline Phosphatase 92 U/L (38-126); Anion Gap 7 mmol/L; Blood Urea Nitrogen 12 mg/dL (7-17); Calcium 8.9 mg/dL (8.4-10.2); Carbon Dioxide 22 mmol/L (22-30); Chloride 109 mmol/L (98-107); Glucose 207 mg/dL (74-99); Magnesium 2.1 mg/dL (1.6-2.3); Non-African American GFR(CKD) >90 (>60 ml/min/1.73 sqM); Potassium 4.5 mmol/L (3.5-5.1); Sodium 138 mmol/L (137-145); Total Bilirubin 0.6 mg/dL (0.2-1.3); Total Protein 7.2 g/dL (6.3-8.2)
[2023-11-07] MEDS: PANTOPRAZOLE 40 MG TABLET PO SCH (09:30)
[2023-11-07] MEDS: DOXYCYCLINE 100 MG CAP PO SCH (09:30)
[2023-11-07] MEDS: ENOXAPARIN 40 MG/0.4 ML SYRINGE SQ SCH (09:34)
[2023-11-07 11:54] LABS: Bordedella pertussis Not detected (Not detected); Bordetella holmesII Not detected (Not detected); Bordetella parapertussis Not detected (Not detected)
--- NOTE | 2023-11-07 13:37 | P.PN ---
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 Since that time she states she has had ongoing issues with shortness of breath. She had been breonna jason with steroids in the outpatient setting without much improvement. She also is on air supra and DuoNeb ventilations without much improvement. She was scheduled to be seen in our office as a new patient in December however she presented here to the emergency room with worsening shortness of breath, cough and congestion. Chest x-ray reveals a right hemidiaphragm elevation with adjacent linear airspace disease likely representing atelectasis. CT angiogram was suboptimal to rule out peripheral pulmonary emboli. No evidence of central pulmonary embolism. There is noted elevated right hemidiaphragm with right basilar consolidation and/or atelectasis and right midlung linear scarring and/or atelectasis. Left lung is clear. There is noted prominent right hilar lymph nodes. Enlarged superior mediastinal lymph node. White count 6.7. Hemoglobin 13.5. Platelets 301. Sodium 136. Potassium 5.2. Bicarb 22. BUN 16. Creatinine 0.85. Glucose 135. Viral screen is negative. She is seen today in consultation in the emergency department. She is currently sitting up on stretcher. She is dyspneic with conversation. Dyspneic with minimal exertion. No productive sputum. No hemoptysis. The patient was seen today November 07, 2023 in follow-up in the emergency department. She is currently sitting up in bed. Awake and alert in no acute distress. Feeling quite a bit better today compared to yesterday. She is maintaining good O2 saturations in the 90s on 2 L/min per nasal cannula. Sniff test did confirm bea paralysis of the right hemidiaphragm. Blood cultures revealed no growth. White count 8.6. Hemoglobin 12.6. Platelets 312,000. Sodium 138. Potassium 4.5. Bicarb 22. BUN 12. Creatinine 0.6. Glucose 207. She is continued on DuoNeb inhalations, Pulmicort and Perforomist inhalations, Solu-Medrol. Empiric antibiotics in the form of doxycycline. Objective - Vital Signs Vital signs: Vital Signs Temp 97.6 F 11/07/23 07:49 Pulse 115 H 11/07/23 11:59 Resp 24 11/07/23 10:48 BP 152/100 11/07/23 07:49 Pulse Ox 93 L 11/07/23 10:48 FiO2 Intake & Output 11/06/23 11/07/23 11/07/23 18:59 06:59 18:59 Intake Total 900 Balance 900 Intake: Intake, IV Titration 900 Amount Sodium Chloride 0.9% 1, 900 000 ml @ 130 mls/hr IV . Q7H42M [facility] Rx#:[id number] Other: # Voids 1 # Bowel Movements 0 - Exam GENERAL EXAM: Alert, very pleasant, 33-year-old female, 2 L nasal cannula, in no acute distress. HEAD: Normocephalic. EYES: Normal reaction of pupils, equal size. NOSE: Clear with pink turbinates. THROAT: No erythema or exudates. NECK: No masses, no JVD. CHEST: No chest wall deformity. LUNGS: Equal air entry with bilateral wheeze, diminished in the right lung base. CVS: S1 and S2 normal with no audible murmur, regular rhythm. ABDOMEN: Obese, normal bowel sounds, no guarding or rigidity. SPINE: No scoliosis or deformity SKIN: No rashes CENTRAL NERVOUS SYSTEM: No focal deficits, tone is normal in all 4 extremities. EXTREMITIES: There is no peripheral edema. No clubbing, no cyanosis. Peripheral pulses are intact. - Labs CBC & Chem 7: 11/07/23 08:18 11/07/23 08:18 Labs: Abnormal Lab Results - Last 24 Hours (Table) 11/07/23 11/07/23 Range/Units 08:18 08:18 RDW 16.0 H (11.5-15.5) % Lymphocytes # 0.8 L (1.0-4.8) k/uL Chloride 109 H (98-107) mmol/L Glucose 207 H (74-99) mg/dL Microbiology - Last 24 Hours (Table) 11/06/23 03:11 Blood Culture - Preliminary Blood 11/06/23 03:11 Blood Culture - Preliminary Blood Assessment and Plan Assessment: Acute hypoxemic respiratory failure secondary to an acute exacerbation of mild intermittent chronic bronchial asthma, elevated right hemidiaphragm and volume loss. 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 History of mild intermittent chronic bronchial asthma History of mediastinal cyst 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, 2023 Elevated right hemidiaphragm suspect secondary to above, previous x-rays did not reveal abnormalities Morbid obesity, BMI 56.3 kg/m History of lap band surgery with subsequent removal in July 2022 History of depression Hypothyroidism Lifelong non-smoker Plan: The patient was seen and evaluated Sniff test, labs and medications reviewed Continue DuoNeb inhalations, Pulmicort and Perforomist inhalations Continue Solu-Medrol Titrate the FiO2 as tolerated The patient will follow-up in our office postdischarge May be considered for diaphragmatic plication down the road I have personally seen and examined the patient, performed the documentation and the assessment and plan as written. Number of minutes spent on the visit: 10.
[2023-11-07 17:00] VITALS: TEMP 97.8
--- NOTE | 2023-11-07 22:43 | P.PN ---
Subjective Progress Note Date: 11/07/23 HISTORY OF PRESENT ILLNESS: 33-year-old office patient with active medical history of chronic asthma with multiple recurrent episode, history of morbid obesity, depression, previous history of lap band and previous history of gallbladder surgery who had COVID-19 earlier in the year and she feels has not recovered well since developed to have worsening wheezes cough and symptoms and has been on and off medication management for it since. Also she found in June that she had mass in the mediastinum area and without having surgery with Dr. 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 She developed to have worsening shortness of breath since but since her procedure developed to have what seemed like elevated right- sided diaphragm and continue to have reactive lymph node in the mediastinum area. She apparently developed to have much worsening shortness of breath wheezes and worsening asthma with slight respiratory failure and has been on prednisone 40 mg for the last 10 days straight which patient did not have much relief with her symptoms she works as a respiratory therapist and through the worsening symptoms she had ended up coming to the emergency department at [facility] after midnight today 11/06/2023 where was seen and evaluated was giving few rounds of breathing treatment along with oxygen did not loosen up her lungs continue to be much worse. D-dimer was elevated chest x-ray showed right hemidiaphragmatic elevation with airspace disease present at the base. CT angiogram was suboptimal failed to show any evidence for pulmonary embolism but noted again in the right hemidiaphragm elevation with basilar consolidation and atelectasis along with midlung glinides scarring and or atelectasis with prominent right hilar lymph node enlargement with enlarged superior mediastinal lymph node as well. She was started on steroid IV along with titration of O2 and updraft treatment admitted to the hospital will be seen pulmonary and see if patient will need to go for bronchoscopy or not. 11/07/2023: Her dyspnea and shortness of breath has improved some compared to yesterday remain on high-dose of Solu-Medrol along with updraft treatment and steroid inhaler with Pulmicort. Also still on doxycycline for severe bronchitis. Review her testing she had paralysis of the right side diaphragma from her procedure to remove a large cystic tumor in her right lung previously. Continue to have significant scar tissue in the mediastinum and the right side no indication for any need for bronchoscopy currently. Pulmonary are happy with the improvement she had with her acute respiratory failure has improved significantly with the treatment aggressive enough for her bronchial asthma. Also patient still been treated for bronchitis. Her history of mediastinal cyst post partial resection and drainage of a giant mediastinal cyst back in June 13, 2023 was successful that led into paralysis on right side Hemidiaphragma. Titrating O2 continue Solu-Medrol to tomorrow switch patient to oral prednisone patient be followed by pulmonary as an outpatient and she is going to be considered for diaphragmatic plication down the road. REVIEW OF SYSTEMS: CONSTITUTIONAL: Morbidly obese in mild respiratory distress. EYES: No icterus sclerae, no conjunctivitis. EARS, NOSE, MOUTH, THROAT, and FACE: No sore throat, lymphadenopathy, carotid bruits or deformity. RESPIRATORY: Positive shortness of breath cough wheezes with productive phlegm and stridor. CARDIOVASCULAR: Positive tachycardia with no angina but significant shortness of breath with it as well. GASTROINTESTINAL: No Abd pain, Nausea or vomiting, no Diarrhea or constipation, No GI Bleed, no distention or masses. GENITOURINARY: Negative for Hematuria or UTI, no kidney stones. INTEGUMENT/BREAST: Negative for any muscular injury with mild osteoarthritis.. HEMATOLOGIC/LYMPHATIC: Negative for bleed or purpura. MUSCULOSKELTAL: Negative for Myalgia or arthralgia. NEURLOGICAL: No LOC, Sz or syncope, blurred vision dizziness or abnormality.. BEHAVIORAL/PSYCH: Negative. ENDOCRINE: Negative. PHYSICAL EXAMINATION: General Appearance: Alert cooperative with mild distress. Neck HEENT: Supple, no lymphadenopathy, no thyroid enlargement, no carotid bruits. Lungs: Decreased breath sound bilaterally with fine rhonchi positive crackles and expiratory wheezes in both lung smith worse on the right side of the left side. Chest Wall: Decreased expansion with deep inspiration no tenderness and no deformity was found on exam, no costochondral pain or discomfort. Heart: Regular rate and rhythm, S1, S2 normal positive tachycardia, no murmur, rub or gallop. Back: Symmetric, no curvature, ROM normal, no CVA tenderness. Abdomen: Soft, non-tender, bowel sounds active all four quadrants, no masses, no organomegaly. Extremities: Extremities normal, atraumatic, no cyanosis or edema. Pulses: 2+ and symmetric. Skin: Skin color, texture, tugor normal, no rashes or lesions. Neurologic: Alert oriented x3 cranial nerves II through XII intact, no motor deficit, no abnormal balance or gait. ASSESSMENT AND PLAN: _Severe acute asthma exacerbation: Patient was hospitalized will continue Solu- Medrol along with updraft treatment and steroid inhaler. Will continue Solu- Medrol till tomorrow switch to oral prednisone. _Acute hypoxic respiratory failure secondary to exacerbation of intermittent asthma with elevation of the diaphragmatic and more loss of volume possibility of underlying bronchitis or infection as well. _History of mediastinal cyst postresection with quite scarring tissue in the lung. Continue to watch for any further complication patient be seen pulmonary on regular basis. As of now found to have paralysis of the hemidiaphragm on the right side. 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 She will be considered for diaphragmatic irritation down the road. _Possibility of severe bronchitis and we described to show this is quite possible she might benefit from simple course of doxycycline 100 mg twice a day at this point. _Severe depression with recurrent episode, remain on Abilify at this point. _Hypothyroidism: Remain on levothyroxine 50 mcg daily. _Morbid obesity: Post lap band in the past failure to management continue diet control. _GI prophylaxis: She will be on Pepcid 20 mg daily. CODE STATUS: Full code. Discharge expectation: Possible discharge home tomorrow. Objective - Vital Signs Vital signs: Vital Signs Temp 98.7 F 11/06/23 23:45 Pulse 86 11/07/23 02:38 Resp 16 11/07/23 02:38 BP 103/49 11/06/23 23:45 Pulse Ox 93 L 11/07/23 02:38 FiO2 Intake & Output 11/06/23 11/06/23 11/07/23 06:59 18:59 06:59 Weight 167.829 kg - Labs CBC & Chem 7: 11/07/23 08:18 11/07/23 08:18
[2023-11-08] MEDS: predniSONE 20 MG TAB PO SCH (09:06)
[2023-11-08 09:11] VITALS: BP 123/92
[2023-11-08 09:17] VITALS: RESP 18
[2023-11-08 09:43] VITALS: PULSE 90
--- NOTE | 2023-11-08 13:20 | P.PN ---
Subjective Progress Note Date: 11/08/23 This is a very pleasant 33-year-old obese female patient who works as a respiratory therapist with a known history of mild intermittent chronic bronchial asthma, hypothyroidism, depression, morbid obesity with previous lap band surgery, previous COVID infection. 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 Since that time she states she has had ongoing issues with shortness of breath. She had been breonna jason with steroids in the outpatient setting without much improvement. She also is on air supra and DuoNeb ventilations without much improvement. She was scheduled to be seen in our office as a new patient in December however she presented here to the emergency room with worsening shortness of breath, cough and congestion. Chest x-ray reveals a right hemidiaphragm elevation with adjacent linear airspace disease likely representing atelectasis. CT angiogram was suboptimal to rule out peripheral pulmonary emboli. No evidence of central pulmonary embolism. There is noted elevated right hemidiaphragm with right basilar consolidation and/or atelectasis and right midlung linear scarring and/or atelectasis. Left lung is clear. There is noted prominent right hilar lymph nodes. Enlarged superior mediastinal lymph node. White count 6.7. Hemoglobin 13.5. Platelets 301. Sodium 136. Potassium 5.2. Bicarb 22. BUN 16. Creatinine 0.85. Glucose 135. Viral screen is negative. She is seen today in consultation in the emergency department. She is currently sitting up on stretcher. She is dyspneic with conversation. Dyspneic with minimal exertion. No productive sputum. No hemoptysis. The patient was seen today November 07, 2023 in follow-up in the emergency department. She is currently sitting up in bed. Awake and alert in no acute distress. Feeling quite a bit better today compared to yesterday. She is maintaining good O2 saturations in the 90s on 2 L/min per nasal cannula. Sniff test did confirm bea paralysis of the right hemidiaphragm. Blood cultures revealed no growth. White count 8.6. Hemoglobin 12.6. Platelets 312,000. Sodium 138. Potassium 4.5. Bicarb 22. BUN 12. Creatinine 0.6. Glucose 207. She is continued on DuoNeb inhalations, Pulmicort and Perforomist inhalations, Solu-Medrol. Empiric antibiotics in the form of doxycycline. The patient is seen today November 08, 2023 in follow-up in the emergency department. She is sitting up in a chair. Awake and alert in no acute distress. She is maintaining O2 saturations in the 90s on 2 L/min per nasal cannula. She remains on DuoNeb inhalations, Pulmicort and pharmacist inhalations, Solu-Medrol. Em piric antibiotics in the form of doxycycline. Cultures revealed no growth. No new labs today. Objective - Vital Signs Vital signs: Vital Signs Temp 97.8 F 11/07/23 16:56 Pulse 90 11/08/23 09:42 Resp 18 11/08/23 09:42 BP 123/92 11/08/23 08:00 Pulse Ox 90 L 11/08/23 09:16 FiO2 Intake & Output 11/07/23 11/08/23 11/08/23 18:59 06:59 18:59 Intake Total 900 1650 Balance 900 1650 Intake: Intake, IV Titration 900 900 Amount Sodium Chloride 0.9% 1, 900 900 000 ml @ 130 mls/hr IV . [id number] [facility] Rx#:[id number] Oral 750 Other: # Voids 1 3 # Bowel Movements 0 0 - Exam GENERAL EXAM: Alert, pleasant, obese 33-year-old female, 2 L nasal cannula, in no acute distress. HEAD: Normocephalic. EYES: Normal reaction of pupils, equal size. NOSE: Clear with pink turbinates. THROAT: No erythema or exudates. NECK: No masses, no JVD. CHEST: No chest wall deformity. LUNGS: Equal air entry with bilateral wheeze, diminished in the right lung base. CVS: S1 and S2 normal with no audible murmur, regular rhythm. ABDOMEN: Obese, normal bowel sounds, no guarding or rigidity. SPINE: No scoliosis or deformity SKIN: No rashes CENTRAL NERVOUS SYSTEM: No focal deficits, tone is normal in all 4 extremities. EXTREMITIES: There is no peripheral edema. No clubbing, no cyanosis. Peripheral pulses are intact. - Labs CBC & Chem 7: 11/07/23 08:18 11/07/23 08:18 Labs: Microbiology - Last 24 Hours (Table) 11/06/23 03:11 Blood Culture - Preliminary Blood 11/06/23 03:11 Blood Culture - Preliminary Blood Assessment and Plan Assessment: Acute hypoxemic respiratory failure secondary to an acute exacerbation of mild intermittent chronic bronchial asthma, elevated right hemidiaphragm and volume loss. 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 History of mild intermittent chronic bronchial asthma History of mediastinal cyst 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, 2023 Elevated right hemidiaphragm suspect secondary to above, previous x-rays did not reveal abnormalities Morbid obesity, BMI 56.3 kg/m History of lap band surgery with subsequent removal in July 2022 History of depression Hypothyroidism Lifelong non-smoker Plan: The patient was seen and evaluated Medications reviewed Cleared for discharge from the pulmonary standpoint Complete a prednisone taper Continue her home pulmonary medications Evaluate for possible home oxygen Educated regarding the importance of weight loss She was planning to have a gastric sleeve placed soon Follow-up with Dr. Meredith in 1 week May be considered for diaphragmatic plication down the road I have personally seen and examined the patient, performed the documentation and the assessment and plan as written. Number of minutes spent on the visit: 10.
--- NOTE | 2023-11-12 06:05 | P.DS ---
Providers Date of admission: 11/06/23 06:55 Attending physician: Matthew Oreilly Consults: 11/06/23 06:54 Consult Physician Routine Consulting Provider: Lazaro Mabry Consult Reason/Comments: asthma exacerbation Do you want consulting provider notified?: Yes, Notify in am Primary care physician: Yuli [facility] Course: HISTORY OF PRESENT ILLNESS: 33-year-old office patient with active medical history of chronic asthma with multiple recurrent episode, history of morbid obesity, depression, previous history of lap band and previous history of gallbladder surgery who had COVID-19 earlier in the year and she feels has not recovered well since developed to have worsening wheezes cough and symptoms and has been on and off medication management for it since. Also she found in June that she had mass in the mediastinum area and without having surgery with Dr. 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 She developed to have worsening shortness of breath since but since her procedure developed to have what seemed like elevated right- sided diaphragm and continue to have reactive lymph node in the mediastinum area. She apparently developed to have much worsening shortness of breath wheezes and worsening asthma with slight respiratory failure and has been on prednisone 40 m g for the last 10 days straight which patient did not have much relief with her symptoms she works as a respiratory therapist and through the worsening symptoms she had ended up coming to the emergency department at [facility] after midnight today 11/06/2023 where was seen and evaluated was giving few rounds of breathing treatment along with oxygen did not loosen up her lungs continue to be much worse. D-dimer was elevated chest x-ray showed right hemidiaphragmatic elevation with airspace disease present at the base. CT angiogram was suboptimal failed to show any evidence for pulmonary embolism but noted again in the right hemidiaphragm elevation with basilar consolidation and atelectasis along with midlung glinides scarring and or atelectasis with prominent right hilar lymph node enlargement with enlarged superior mediastinal lymph node as well. She was started on steroid IV along with titration of O2 and updraft treatment admitted to the hospital will be seen pulmonary and see if patient will need to go for bronchoscopy or not. 11/07/2023: Her dyspnea and shortness of breath has improved some compared to yesterday remain on high-dose of Solu-Medrol along with updraft treatment and steroid inhaler with Pulmicort. Also still on doxycycline for severe bronchitis. Review her testing she had paralysis of the right side diaphragma from her procedure to remove a large cystic tumor in her right lung previously. Continue to have significant scar tissue in the mediastinum and the right side no indication for any need for bronchoscopy currently. Pulmonary are happy with the improvement she had with her acute respiratory failure has improved significantly with the treatment aggressive enough for her bronchial asthma. Also patient still been treated for bronchitis. Her history of mediastinal cyst post partial resection and drainage of a giant mediastinal cyst back in June 13, 2023 was successful that led into paralysis on right side Hemidiaphragma. Titrating O2 continue Solu-Medrol to tomorrow switch patient to oral prednisone patient be followed by pulmonary as an outpatient and she is going to be considered for diaphragmatic plication down the road. 11/08/2023: Patient is feeling much better, her dyspnea and shortness of breath has improved significantly, cough and wheezes is slightly bit better. Her Solu- Medrol be changed to prednisone 40 mg with tapering dose also patient will be on doxycycline orally for the next few days until she is seen as an outpatient. It does not seem that patient require any oxygen as an outpatient. She will be seen pulmonary as an outpatient and probably the plan eventually to send her for diaphragmatic plication down the road. REVIEW OF SYSTEMS: CONSTITUTIONAL: Morbidly obese in mild respiratory distress. EYES: No icterus sclerae, no conjunctivitis. EARS, NOSE, MOUTH, THROAT, and FACE: No sore throat, lymphadenopathy, carotid bruits or deformity. RESPIRATORY: Positive shortness of breath cough wheezes with productive phlegm and stridor. CARDIOVASCULAR: Positive tachycardia with no angina but significant shortness of breath with it as well. GASTROINTESTINAL: No Abd pain, Nausea or vomiting, no Diarrhea or constipation, No GI Bleed, no distention or masses. GENITOURINARY: Negative for Hematuria or UTI, no kidney stones. INTEGUMENT/BREAST: Negative for any muscular injury with mild osteoarthritis.. HEMATOLOGIC/LYMPHATIC: Negative for bleed or purpura. MUSCULOSKELTAL: Negative for Myalgia or arthralgia. NEURLOGICAL: No LOC, Sz or syncope, blurred vision dizziness or abnormality.. BEHAVIORAL/PSYCH: Negative. ENDOCRINE: Negative. PHYSICAL EXAMINATION: General Appearance: Alert cooperative with mild distress. Neck HEENT: Supple, no lymphadenopathy, no thyroid enlargement, no carotid bruits. Lungs: Decreased breath sound bilaterally with fine rhonchi positive crackles and expiratory wheezes in both lung smith worse on the right side of the left side. Chest Wall: Decreased expansion with deep inspiration no tenderness and no deformity was found on exam, no costochondral pain or discomfort. Heart: Regular rate and rhythm, S1, S2 normal positive tachycardia, no murmur, rub or gallop. Back: Symmetric, no curvature, ROM normal, no CVA tenderness. Abdomen: Soft, non-tender, bowel sounds active all four quadrants, no masses, no organomegaly. Extremities: Extremities normal, atraumatic, no cyanosis or edema. Pulses: 2+ and symmetric. Skin: Skin color, texture, tugor normal, no rashes or lesions. Neurologic: Alert oriented x3 cranial nerves II through XII intact, no motor deficit, no abnormal balance or gait. ASSESSMENT AND PLAN: _Severe acute asthma exacerbation: Patient was hospitalized will continue Solu- Medrol along with updraft treatment and steroid inhaler. Will continue Solu- Medrol till tomorrow switch to oral prednisone. _Acute hypoxic respiratory failure secondary to exacerbation of intermittent asthma with elevation of the diaphragmatic and more loss of volume possibility of underlying bronchitis or infection as well. _History of mediastinal cyst postresection with quite scarring tissue in the lung. Continue to watch for any further complication patient be seen pulmonary on regular basis. As of now found to have paralysis of the hemidiaphragm on the right side. 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 She will be considered for diaphragmatic irritation down the road. _Possibility of severe bronchitis and we described to show this is quite possible she might benefit from simple course of doxycycline 100 mg twice a day at this point. _Severe depression with recurrent episode, remain on Abilify at this point. _Hypothyroidism: Remain on levothyroxine 50 mcg daily. _Morbid obesity: Post lap band in the past failure to management continue diet control. _GI prophylaxis: She will be on Pepcid 20 mg daily. CODE STATUS: Full code. The patient is stable to discharge home on 11/08/2023. Hospital course: She was admitted to the hospital on 11/06/2023 for severe dyspnea and shortness of breath and severe acute asthma attack with exacerbation did not respond to outpatient treatment she require few rounds of nebulizer management to help initially and was kept on oxygen along with updraft treatment and Solu-Medrol [id number]. Patient was seen pulmonary she had right-sided diaphragmatic paralysis secondary to surgery she had in June 13, 2023 for mediastinal cyst it ended up being very benign but after the procedure developed to have diaphragmatic paralysis on the right side which did not help her underlying asthma Patient was hospitalized in continuing aggressive management for the following 24 hours. Patient symptom becomes slightly better at the conclusion with pulmonary that she would be seen as an outpatient and eventually she might need to be referred for diaphragmatic plication when she is ready. In the meanwhile patient be discharged home to be seen in the office in the next 3 to 5 days and seen pulmonary within 1 week. Patient Condition at Discharge: Stable Plan - Discharge Summary New Discharge Prescriptions: New Ipratropium-Albuterol Nebulize [Duoneb 0.5 mg-3 mg/3 ml Soln] 3 ml INHALATION RT-QID #120 each Formoterol Fumarate [Perforomist] 20 mcg INHALATION RT-BID #120 ml Doxycycline [Vibramycin] 100 mg PO BID #14 cap predniSONE [Deltasone] 10 mg PO DAILY #40 tab Pantoprazole [Protonix] 40 mg PO AC-BRKFST #30 tab Continue Budesonide [Pulmicort] 1 mg INHALATION RT-BID Levothyroxine Sodium [Unithroid] 50 mcg PO DAILY ARIPiprazole [Abilify] 10 mg PO DAILY Levothyroxine Sodium [Unithroid] 200 mcg PO DAILY Albuterol Nebulized [Ventolin Nebulized] 2.5 mg INHALATION RT-Q4H Discharge Medication List ARIPiprazole [Abilify] 10 mg PO DAILY 05/16/22 [History] Levothyroxine Sodium [Unithroid] 200 mcg PO DAILY 06/11/23 [History] Albuterol Nebulized [Ventolin Nebulized] 2.5 mg INHALATION RT-Q4H 11/06/23 [History] Budesonide [Pulmicort] 1 mg INHALATION RT-BID 11/06/23 [History] Levothyroxine Sodium [Unithroid] 50 mcg PO DAILY 11/06/23 [History] Doxycycline [Vibramycin] 100 mg PO BID #14 cap 11/08/23 [Rx] Formoterol Fumarate [Perforomist] 20 mcg INHALATION RT-BID #120 ml 11/08/23 [Rx] Ipratropium-Albuterol Nebulize [Duoneb 0.5 mg-3 mg/3 ml Soln] 3 ml INHALATION RT-QID #120 each 11/08/23 [Rx] Pantoprazole [Protonix] 40 mg PO AC-BRKFST #30 tab 11/08/23 [Rx] predniSONE [Deltasone] 10 mg PO DAILY #40 tab 11/08/23 [Rx] Follow up Appointment(s)/Referral(s): Yuli Alexander MD [Primary Care Provider] - 1-2 days Gonzalo Meredith DO [Doctor of Osteopathic Medicine] - 1 Week Patient Instructions/Handouts: Shortness of Breath (GEN) Discharge Disposition: HOME SELF-CARE
== END 2023-11-08 11:20 | disposition home or self-care (01) | DRG 189 ==
LOC: EC 01:59 → 3SCARD 06:55
PROVIDERS: ADMIT Internal Medicine Geriatric Medicine; ATTEND Internal Medicine Geriatric Medicine
DX: J96.01 Acute respiratory failure with hypoxia (principal); J45.21 Mild intermittent asthma with (acute) exacerbation; J98.11 Atelectasis; Z68.43 Body mass index [BMI] 50.0-59.9, adult; J98.6 Disorders of diaphragm; E03.9 Hypothyroidism, unspecified; E66.01 Morbid (severe) obesity due to excess calories; F32.A Depression, unspecified; F41.9 Anxiety disorder, unspecified; F43.10 Post-traumatic stress disorder, unspecified; F90.9 Attention-deficit hyperactivity disorder, unspecified type; R59.0 Localized enlarged lymph nodes; T81.89XS Other complications of procedures, not elsewhere classified, sequela; Y83.8 Other surgical procedures as the cause of abnormal reaction of the patient, or of later complication, without mention of misadventure at the time of the procedure; Z86.16 Personal history of COVID-19; Z11.52 Encounter for screening for COVID-19; Z79.890 Hormone replacement therapy; Z79.51 Long term (current) use of inhaled steroids; Z79.899 Other long term (current) drug therapy; Z88.0 Allergy status to penicillin; Z88.8 Allergy status to other drugs, medicaments and biological substances
CPT/HCPCS: 36415; 71046; 71275; 76000; 80053; 83605; 83735; 85025; 85610; 85730; 87040; 87636; 87798; 93005; 94640; 96361; 96372; 96374; 96376; 99285

== ENCOUNTER → 2023-11-12 | Outpatient (CLI) | payer OTHER ==
[2023-11-12 20:25] LABS: Alternaria alternata IgE <0.10 kU/L; Aspergillus fumagatus IgE <0.10 kU/L; Birch IgE <0.10 kU/L; Cat Epith & Dander IgE <0.10 kU/L; Cladosporian herbarum IgE <0.10 kU/L; Clam IgE <0.10 kU/L; Cockroach IgE <0.10 kU/L; Codfish IgE <0.10 kU/L; Dermato. farinae IgE <0.10 kU/L; Dog Dander IgE <0.10 kU/L; Egg White IgE <0.10 kU/L; Elm IgE <0.10 kU/L; Maple (Box Elder) IgE <0.10 kU/L; Oak IgE <0.10 kU/L; Peanut IgE <0.10 kU/L; Ragweed,Common IgE <0.10 kU/L; Red Top (Bentgrass) IgE <0.10 kU/L; Scallop IgE <0.10 kU/L; Shrimp IgE <0.10 kU/L; Soybean IgE <0.10 kU/L; Walnut IgE (Food) <0.10 kU/L
[2023-11-12 22:52] LABS: Immunoglobulin E <5.00 IU/mL (0.00-114.00)
== END | disposition home or self-care (01) ==
LOC: LABWHC1 12:06
PROVIDERS: ATTEND Internal Medicine Critical Care Medicine
DX: J45.909 Unspecified asthma, uncomplicated (principal)
CPT/HCPCS: 36415; 82785; 85008; 86003

== ENCOUNTER → 2023-12-04 | Outpatient (CLI) | payer OTHER ==
[2023-12-04 17:08] LABS: African American GFR (CKD) >90 (>60 ml/min/1.73 sqM); Blood Urea Nitrogen 11 mg/dL (7-17); Non-African American GFR(CKD) 87 (>60 ml/min/1.73 sqM)
--- NOTE | 2023-12-12 11:32 | CT ---
EXAMINATION TYPE: CT angio chest DATE OF EXAM: 12/04/2023 COMPARISON: 09/23/2023, 11/06/2023. Sniff test 11/06/2023. HISTORY: 33-year-old female R79.89, D-dimer high on blood chemistry. TECHNIQUE: Contiguous axial scanning of the chest after the administration of 100ml mL of Isovue 370. Coronal/sagittal MIP reconstructions performed. CT DLP: 633.20mGycm. Automatic exposure control utilized for a dose reduction. FINDINGS: The heart is normal size without pericardial effusion. However, there is slight leftward cardiac shift due to elevated right hemidiaphragm. There is seconda ry partial collapse of the right middle and right lower lobes. Additional large bandlike areas of ate lectasis throughout the right upper lobe similar. Right superior mediastinal mass is redemonstrated. Progressive enlargement now 7.8 x 4.6 cm. On 2023 and 11/06/2023, it measured approximately 6.3 x 4.5 cm. There is ongoing mass effect onto the brac hiocephalic artery, SVC, and left brachiocephalic vein. Likely some mass effect causing partial mayte ening of the trachea as well. No additional thoracic lymphadenopathy identified. Suboptimal contrast bolus and scattered breathing motion artifact limiting evaluation for pulmonary e mbolism. No large central pulmonary embolus. No lobar branch pulmonary embolus on the left. Otherwise , lobar, segmental and more distal arterial branches are very limited to nondiagnostic especially on the right. No other consolidation or pleural effusion. Liver enlarged at 19.4 cm with low attenuation compatible with fatty infiltration. Cholecystectomy cl ips. No osseous destructive process. IMPRESSION: 1. Known right superior mediastinal mass but with interval enlargement currently 7.8 x 4.6 cm (versus 6.2 x 4.5 cm, previously). The degree of local mass effect has increased. Mild tracheal narrowing is present. Recommend pulmonary medicine referral and tissue sampling if no established diagnosis. 2. Suboptimal contrast bolus. No large central pulmonary embolus. No definite pulmonary embolus to th e lobar branch level on the left. Lobar, segmental, and more distal arterial branches on the right ar e very limited to nondiagnostic. 3. Ongoing marked asymmetric elevation right hemidiaphragm relating to hemidiaphragmatic paralysis. O ngoing partial collapse of the right middle and right lower lobes. Large bands of atelectasis in the right upper lobe as well. 4. Hepatomegaly at 19.4 cm with hepatic steatosis.
== END | disposition home or self-care (01) ==
LOC: RADCTMAIN 16:02
PROVIDERS: ATTEND Family Medicine
DX: R79.89 Other specified abnormal findings of blood chemistry (principal); R22.2 Localized swelling, mass and lump, trunk; R16.0 Hepatomegaly, not elsewhere classified; K76.0 Fatty (change of) liver, not elsewhere classified; J39.8 Other specified diseases of upper respiratory tract
CPT/HCPCS: 82565; 84520; 71275; 36415; Q9967

== ENCOUNTER → 2024-04-01 | Outpatient (CLI) | payer OTHER ==
[2024-04-01 13:07] LABS: HCT 44.8 % (34.0-46.0); HGB 13.8 gm/dL (11.4-16.0); Hypochromasia Moderate; MCH 24.6 pg (25.0-35.0); MCHC 30.8 g/dL (31.0-37.0); MCV 79.7 fL (80.0-100.0); Mean Platelet Volume 9.4; RBC 5.63 m/uL (3.80-5.40); RDW 14.7 % (11.5-15.5); WBC 4.9 k/uL (3.8-10.6)
[2024-04-01 14:29] LABS: Lymphocytes # (M) 1.96 k/uL (1.0-4.8); Neutrophils # (M) 2.74 k/uL (1.3-7.7); Neutrophils % (M) 56 %; Nucleated Red Blood Cells 0 /100 WBC (0-0); Total Cells Counted 100
[2024-04-01 14:30] LABS: Poikilocytosis (M) Present
[2024-04-01 14:31] LABS: Platelet Count 150 k/uL (150-450)
[2024-04-01 16:38] LABS: BUN/Creat Ratio 16.38 Ratio (12.00-20.00); Blood Urea Nitrogen 13.1 mg/dL (9.0-27.0); Carbon Dioxide 22.7 mmol/L (21.6-31.8); Chloride 108 mmol/L (96-109); Glucose 93 mg/dL (70-110); LDH 240 U/L (120-246); Potassium 4.2 mmol/L (3.5-5.5); Sodium 142 mmol/L (135-145)
[2024-04-01 16:39] LABS: ALT 33 U/L (8-44); AST 30 U/L (13-35); Albumin 4.1 g/dL (3.8-4.9); Albumin/Globulin Ratio 1.58 Ratio (1.60-3.17); Alkaline Phosphatase 97 U/L (41-126); Calcium 9.3 mg/dL (8.7-10.3); Globulin 2.6 g/dL (1.6-3.3); T4, Free (Free Thyroxine) 1.54 ng/dL (0.80-1.80); Total Bilirubin 0.4 mg/dL (0.3-1.2); Total Protein 6.7 g/dL (6.2-8.2)
[2024-04-01 19:18] LABS: Erythrocyte Sedimentation Rate 34 mm/Hr (0-20)
== END | disposition home or self-care (01) ==
LOC: LABWHC1 10:38
PROVIDERS: ATTEND Family Medicine
DX: D38.3 Neoplasm of uncertain behavior of mediastinum (principal)
CPT/HCPCS: 36415; 80053; 82533; 83615; 83835; 84145; 84439; 84443; 85025; 85652; 86140

== ENCOUNTER → 2024-04-07 | Outpatient (CLI) | payer OTHER ==
--- NOTE | 2024-04-09 16:22 | CT ---
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 TECHNIQUE/CONTRAST: CTA scan of the thorax is performed with IV Contrast, patient injected with 100 ml mL of Isovue 370, MIP images are created and reviewed these are created on a separate workstation.. CT DLP: 1505.10 mGycm, Automated exposure control for dose reduction was used. FINDINGS: The heart is stable in size without evidence for pericardial effusion. Persistent slight leftward cardiac shift due to elevated right hemidiaphragm. The remains streaky ate lectasis in the right lung secondary to the elevated right diaphragm. Persistent superior mediastinal mass is redemonstrated. Progressive enlargement now 7.8 x 4.6 cm. This is slightly decreased in size in transverse dimension now measuring 6.5, previously 6.9 cm on 12/04/2023. In the caudocranial dimension measures up to 4.1 cm previously 4.3 cm. Dimensions on a axial imaging measuring 7.4 x 3.5 previously 7.8 x 4.6 cm. There remains mass effect onto the brachiocephalic artery, SVC, and left brachiocephalic vein. Likely some mass effect causing partial flattening of the trachea as well. No focal airspace consolidation, pneumothorax or pleural effusion identified. No lymphadenopathy in t he upper abdomen. The axillas are clear. No other consolidation or pleural effusion. Diffuse low-attenuation to the liver is unchanged. The gallbladder surgically absent. Small hiatal he rnia. No osseous destructive process. IMPRESSION: 1. Right superior mediastinal mass slightly decreased in size when measuring similarly. Remains simil ar mass effect upon the superior vena cava and mediastinal structures 2. Similar elevated right diaphragm with subsegmental atelectasis correlate for phrenic nerve injury. [facility], , 04/09/2024 4:20 PM
== END | disposition home or self-care (01) ==
LOC: RADCTMAIN 14:53
PROVIDERS: ATTEND Family Medicine
DX: D38.3 Neoplasm of uncertain behavior of mediastinum (principal); J98.11 Atelectasis; J98.6 Disorders of diaphragm
CPT/HCPCS: 71275; Q9967